=== PATIENT | female | born 1945 | race Caucasian/White ===

== ENCOUNTER 2018-08-23 13:09 | Inpatient (IN) | payer MEDICARE ==
[~2018-08-23] VITALS: Ht 167.6 cm; Wt 76.4 kg
[~2018-08-23 13:09] MED LIST: ATEN25TA PO; LORA-445 PO; OXYC10TA6 PO
[2018-08-23] MEDS ORDERED: DIPH,PERTUSS(ACELL),TET VAC/PF 0.5 ML IM-VACC ONE (14:00)
[2018-08-23] MEDS ORDERED: LIDOCAINE-MPF 1%, 5ML INFIL ONE (14:00)
[2018-08-23 14:31] LABS: RAPID INFLUENZA A Negative (Negative); RAPID INFLUENZA B Negative (Negative)
--- NOTE | 2018-08-23 14:37 | NUR ---
pt presents to ED with c/o cough and generalized weakness x 3 weeks. pt a&o, resps even and unlabored, neuro intact. pt has 4/5 strength to all extremities, gait steady. EKG taken and reviewed by EDMD and EDPA. all results back, chart up for recheck. awaiting further orders at this time.
[2018-08-23 15:09] LABS: BASOPHILS # (AUTO) 0.02 x10^3/uL (0-0.1); BASOPHILS % (AUTO) 0 % (0-1); EOSINOPHILS # (AUTO) 0.06 x10^3/uL (0-0.4); EOSINOPHILS % (AUTO) 1 % (1-7); LYMPHOCYTES # (AUTO) 1.53 x10^3/uL (1-3.4); LYMPHOCYTES % (AUTO) 22 % (22-44); MD NO; MEAN CORPUSCULAR HEMOGLOBIN 32.3 pg (27.0-34.8); MEAN CORPUSCULAR HGB CONC 33.3 g/dL (32.4-35.8); MEAN CORPUSCULAR VOLUME 97.2 fL (80-100); MEAN PLATELET VOLUME 7.3 fL (7.4-10.4); MONOCYTES # (AUTO) 0.62 x10^3/uL (0.2-0.8); MONOCYTES % (AUTO) 9 % (2-9); NEUTROPHILS # (AUTO) 4.66 x10^3/uL (1.8-6.8); NEUTROPHILS % (AUTO) 68 % (42-75); PLATELET COUNT 244 x10^3/uL (130-400); RED CELL DISTRIBUTION WIDTH 15.4 % (9.6-15.2)
--- NOTE | 2018-08-23 15:10 | NUR ---
labs ordered and pending at this time. pt to be admitted, pt updated with results and POC by EDPA. EDPA Long at bedside at this time. all monitors in place, pt is sinus david rate 50's on cardiac rehabilitation program director with no ectopy. call light in reach. Addendum: 08/23/18 at 1551 by GAVINO labs ordered and pending at this time. pt to be admitted, pt updated with results and POC by EDPA. EDPA Long at bedside at this time. all monitors in place, pt is sinus david rate 50's on cardiac rehabilitation program director with no ectopy. pt denies any chest pain/pressure. call light in reach.
[2018-08-23 15:14] LABS: ALBUMIN 3.6 g/dL (3.4-5.0); ANION GAP 8 mmol/L (5-15); CALCIUM 8.8 mg/dL (8.5-10.1); CHLORIDE 106 mmol/L (98-107)
[2018-08-23 15:19] LABS: ALANINE AMINOTRANSFERASE 29 U/L (12-78); ALKALINE PHOSPHATASE 61 U/L (45-117); BILIRUBIN,TOTAL 1.8 mg/dL (0.2-1.0); CREATININE 1.21 mg/dL (0.55-1.02); TOTAL PROTEIN 6.8 g/dL (6.4-8.2); TROPONIN I < 0.015 ng/mL (0.000-0.045)
--- NOTE | 2018-08-23 16:00 | NUR ---
pt to CT, pt a&o, resps even and unlabored, nadn at this time. son at bedside, son updated with POC with pts permission.
[2018-08-23] MEDS ORDERED: OMNIPAQUE 350 MG/ML, 100ML BOTTLE ONE (16:20)
[2018-08-23] MEDS ORDERED: AMIO100T4 PO (16:35)
[2018-08-23] MEDS ORDERED: MIRT15TA3 PO (16:35)
[2018-08-23] MEDS ORDERED: LISI-170 PO (16:35)
[2018-08-23] MEDS ORDERED: [UNRECOGNIZED DRUG - CODE] PO (16:35)
[2018-08-23] MEDS ORDERED: CARV6.252 PO (16:35)
[2018-08-23] MEDS ORDERED: TRAZ50TA66 PO (16:35)
[2018-08-23] MEDS ORDERED: CELE200C PO (16:35)
[2018-08-23] MEDS ORDERED: BACL-19 PO (16:35)
[2018-08-23] MEDS ORDERED: HYDR50TA13 PO (16:35)
--- NOTE | 2018-08-23 16:35 | NUR ---
PT UNABLE TO RECALL HOME MEDS, PT STATES PREFERRED PHARMACY IS [facility]. HOME MEDS VERIFIED BY CALLING PTS HOME PHARMACY, MED REC COMPLETE.
--- NOTE | 2018-08-23 16:41 | NUR ---
PT BACK FROM CT. PT A&O, RESPS EVEN AND UNLABORED. PT DENIES PAIN. SINUS TWYLA RATE 50'S ON BUSINESS MGR. CALL LIGHT IN REACH. PT AWAITING ADMIT ORDERS AND ROOM ASSIGNMENT. CONTACT AND DROPLET ISOLATION PRECAUTIONS IN PLACE D/T +RSV. PT AND FAMILY EDUCATED REGARDING ISOLATION PRECAUTIONS.
--- NOTE | 2018-08-23 17:04 | NUR ---
EDMD YON AT BEDSIDE TO UPDATE PT WITH RESULTS AND POC.
[2018-08-23] MEDS: SODIUM CHLORIDE 0.9% 1,000 ML IV SCH ×2 (17:33→20:30)
--- NOTE | 2018-08-23 17:34 | NUR ---
TERRA Ambrocio at bedside to admit pt. IVF initiated. Pt provided with juice and water with EDMDs ok.
[2018-08-23] MEDS ORDERED: NITROGLYCERIN 0.4 MG BOTTLE (25 TABS) SL PRN (18:00)
[2018-08-23] MEDS ORDERED: ONDANSETRON 2MG/ML, 2ML IVPush PRN (18:00)
[2018-08-23] MEDS ORDERED: POLYETHYLENE GLYCOL 17 GM PACKET PO PRN (18:00)
[2018-08-23] MEDS ORDERED: hydrALAzine 20 MG/ML, 1ML IVPush PRN (18:00)
[2018-08-23] MEDS ORDERED: BISACODYL 10 MG SUPP PR PRN (18:00)
[2018-08-23] MEDS ORDERED: ACETAMINOPHEN 325 MG TABLET PO PRN (18:00)
[2018-08-23] MEDS ORDERED: ONDANSETRON ODT 4 MG PO PRN (18:00)
[2018-08-23] MEDS ORDERED: DOCUSATE 100 MG CAPSULE PO PRN (18:00)
[2018-08-23] MEDS ORDERED: DIPHENHYDRAMINE 25 MG CAPSULE PO PRN (18:00)
[2018-08-23] MEDS ORDERED: ASPIRIN PO (18:05)
--- NOTE | 2018-08-23 18:05 | NUR ---
REPORT CALLED TO RECEIVING RN FAY. PT A&O, RESPS EVEN AND UNLABORED, SINUS TWYLA ON DOBIE WORKER WITH NO ECTOPY. PT AWAITING TRANSPORT TO ROOM 420 AT THIS TIME.
[2018-08-23 18:41] VITALS: BP 140/81
[2018-08-23 18:46] LABS: TROPONIN I < 0.015 ng/mL (0.000-0.045)
[2018-08-23] MEDS: CEFTRIAXONE PMX 1GM/50ML 50 ML IV SCH (20:30)
[2018-08-23] MEDS: NS + 20MEQ KCL 1,000 ML IV SCH (20:30)
[2018-08-23] MEDS: HEPARIN 5,000 UNITS/ML, 1ML SQ SCH (20:32)
[2018-08-23] MEDS: DOXYCYCLINE 100MG TABLET PO SCH (20:32)
[2018-08-23 21:17] LABS: TROPONIN I < 0.015 ng/mL (0.000-0.045)
[2018-08-23] MEDS: GUAIFENESIN/DM 200-20MG, 10ML UDC PO SCH (21:19)
[2018-08-23] MEDS ORDERED: ZOLPIDEM 5MG TABLET ONE (21:27)
[2018-08-23] MEDS ORDERED: ZOLPIDEM 5MG TABLET PO ONE (21:30)
[2018-08-23 22:36] VITALS: BP 103/65
[2018-08-23 22:46] LABS: MICROSCOPIC NOT IND
[2018-08-23 22:49] LABS: CULTURE INDICATED? NO
[2018-08-23 23:00] VITALS: BP 119/62
[2018-08-24 01:07] VITALS: BP 126/71
[2018-08-24] MEDS: HEPARIN 5,000 UNITS/ML, 1ML SQ SCH ×3 (02:40→17:54)
[2018-08-24 04:39] LABS: ALANINE AMINOTRANSFERASE 24 U/L (12-78); ALBUMIN 3.2 g/dL (3.4-5.0); ANION GAP 3 mmol/L (5-15); CALCIUM 7.9 mg/dL (8.5-10.1); CHLORIDE 108 mmol/L (98-107); CREATININE 0.93 mg/dL (0.55-1.02)
[2018-08-24 04:42] LABS: ALKALINE PHOSPHATASE 59 U/L (45-117); BILIRUBIN,TOTAL 1.2 mg/dL (0.2-1.0); TOTAL PROTEIN 6.2 g/dL (6.4-8.2)
[2018-08-24 04:59] LABS: BASOPHILS # (AUTO) 0.02 x10^3/uL (0-0.1); BASOPHILS % (AUTO) 0 % (0-1); EOSINOPHILS % (AUTO) 2 % (1-7); LYMPHOCYTES % (AUTO) 33 % (22-44); MD NO; MEAN CORPUSCULAR HEMOGLOBIN 33.4 pg (27.0-34.8); MEAN CORPUSCULAR HGB CONC 34.2 g/dL (32.4-35.8); MEAN CORPUSCULAR VOLUME 97.5 fL (80-100); MEAN PLATELET VOLUME 7.7 fL (7.4-10.4); MONOCYTES % (AUTO) 13 % (2-9); NEUTROPHILS # (AUTO) 3.42 x10^3/uL (1.8-6.8); NEUTROPHILS % (AUTO) 53 % (42-75); PLATELET COUNT 191 x10^3/uL (130-400); RED BLOOD COUNT 4.02 x10^6/uL (3.82-5.3); RED CELL DISTRIBUTION WIDTH 15.6 % (9.6-15.2)
[2018-08-24] MEDS: GUAIFENESIN/DM 200-20MG, 10ML UDC PO SCH ×3 (05:51→09:14)
[2018-08-24] MEDS: NS + 20MEQ KCL 1,000 ML IV SCH ×3 (06:08→20:42)
[2018-08-24 08:20] VITALS: BP 140/97
[2018-08-24] MEDS: DOXYCYCLINE 100MG TABLET PO SCH ×2 (09:14→20:42)
[2018-08-24] MEDS: GUAIFENESIN ER 600 MG TABLET PO SCH ×2 (11:47→20:44)
[2018-08-24] MEDS: BENZONATATE 100 MG CAPSULE PO SCH ×3 (11:47→20:44)
[2018-08-24 13:19] VITALS: BP 149/89
[2018-08-24] MEDS ORDERED: VANCOMYCIN PER PHARMACY MC PRN (13:30)
[2018-08-24] MEDS ORDERED: PHARMACOKINETIC CONSULTATION MC ONE (14:00)
[2018-08-24] MEDS ORDERED: hydrOXyzine 50MG TABLET PO PRN (14:00)
[2018-08-24] MEDS ORDERED: PHARMACOKINETIC MONITORING MC PRN (14:00)
[2018-08-24] MEDS: BACLOFEN 10 MG TABLET PO SCH ×2 (15:16→20:43)
[2018-08-24] MEDS: VANCOMYCIN 1,500 MG in SODIUM CHLORIDE 0.9% 250 ML IV SCH (17:30)
[2018-08-24 18:44] VITALS: BP 140/97
[2018-08-24] MEDS: CEFTRIAXONE PMX 1GM/50ML 50 ML IV SCH (20:42)
[2018-08-24] MEDS: CARVEDILOL 6.25 MG TABLET PO SCH (20:43)
[2018-08-24] MEDS: MIRTAZAPINE 15 MG TAB.RAPDIS PO SCH (20:45)
[2018-08-24] MEDS: TRAZODONE 50MG TABLET PO SCH (20:45)
[2018-08-24] MEDS: ZOLPIDEM 5MG TABLET PO PRN (21:30)
[2018-08-25 01:03] VITALS: BP 151/96
[2018-08-25] MEDS: HEPARIN 5,000 UNITS/ML, 1ML SQ SCH ×3 (02:41→17:06)
[2018-08-25] MEDS: NS + 20MEQ KCL 1,000 ML IV SCH ×2 (05:49→17:00)
[2018-08-25 08:10] VITALS: BP 156/99
[2018-08-25] MEDS: BENZONATATE 100 MG CAPSULE PO SCH ×3 (09:51→21:12)
[2018-08-25] MEDS: AMIODARONE 200 MG TABLET PO SCH (09:52)
[2018-08-25] MEDS: GUAIFENESIN ER 600 MG TABLET PO SCH ×2 (09:52→21:12)
[2018-08-25] MEDS: CARVEDILOL 6.25 MG TABLET PO SCH ×2 (09:52→21:13)
[2018-08-25] MEDS: DOXYCYCLINE 100MG TABLET PO SCH ×2 (09:52→21:12)
[2018-08-25] MEDS: PAROXETINE HCL 37.5 MG PO SCH (09:52)
[2018-08-25] MEDS: LISINOPRIL 20 MG TABLET PO SCH (09:52)
[2018-08-25] MEDS: ASPIRIN 81 MG TABLET CHEW PO SCH (09:52)
[2018-08-25] MEDS: BACLOFEN 10 MG TABLET PO SCH ×3 (09:52→21:12)
[2018-08-25 12:37] VITALS: BP 143/75
[2018-08-25] MEDS: VANCOMYCIN 1,500 MG in SODIUM CHLORIDE 0.9% 250 ML IV SCH (17:00)
[2018-08-25 19:18] VITALS: BP 140/99
[2018-08-25] MEDS: MIRTAZAPINE 15 MG TAB.RAPDIS PO SCH (21:12)
[2018-08-25] MEDS: TRAZODONE 50MG TABLET PO SCH (21:12)
[2018-08-25] MEDS: CEFTRIAXONE PMX 1GM/50ML 50 ML IV SCH (21:12)
[2018-08-25] MEDS: ZOLPIDEM 5MG TABLET PO PRN (21:12)
[2018-08-26] MEDS: HEPARIN 5,000 UNITS/ML, 1ML SQ SCH ×2 (00:12→10:15)
[2018-08-26] MEDS: NS + 20MEQ KCL 1,000 ML IV SCH ×2 (01:37→08:22)
[2018-08-26 02:00] VITALS: BP 150/96
[2018-08-26 07:51] VITALS: BP 153/111
[2018-08-26 08:15] VITALS: BP 154/101
[2018-08-26] MEDS: GUAIFENESIN ER 600 MG TABLET PO SCH (08:18)
[2018-08-26] MEDS: BENZONATATE 100 MG CAPSULE PO SCH ×2 (08:18→16:27)
[2018-08-26] MEDS: CARVEDILOL 6.25 MG TABLET PO SCH (08:18)
[2018-08-26] MEDS: BACLOFEN 10 MG TABLET PO SCH ×2 (08:18→16:27)
[2018-08-26] MEDS: LISINOPRIL 20 MG TABLET PO SCH (08:19)
[2018-08-26] MEDS: DOXYCYCLINE 100MG TABLET PO SCH (08:19)
[2018-08-26] MEDS: ASPIRIN 81 MG TABLET CHEW PO SCH (08:19)
[2018-08-26] MEDS: AMIODARONE 200 MG TABLET PO SCH (08:19)
[2018-08-26] MEDS: PAROXETINE HCL 37.5 MG PO SCH (08:22)
[2018-08-26] MEDS ORDERED: DOXY100T PO (10:21)
[2018-08-26] MEDS ORDERED: BENZ-17 PO (10:21)
[2018-08-26] MEDS ORDERED: GUAI600T31 PO (10:21)
[2018-08-26] MEDS ORDERED: CEFD300C37 PO (10:21)
[2018-08-26 13:45] VITALS: BP 128/92
== END 2018-08-26 17:00 | disposition home or self-care (01) | DRG 682 ==
LOC: ED 14:55 → EDIP 17:10 → 4WST 18:25
PROVIDERS: ADMIT Internal Medicine; ATTEND Internal Medicine
DX: N17.0 Acute kidney failure with tubular necrosis (principal); J18.9 Pneumonia, unspecified organism; R17 Unspecified jaundice; B97.4 Respiratory syncytial virus as the cause of diseases classified elsewhere; R25.1 Tremor, unspecified; E86.0 Dehydration; F32.9 Major depressive disorder, single episode, unspecified; I10 Essential (primary) hypertension; I48.91 Unspecified atrial fibrillation; F17.210 Nicotine dependence, cigarettes, uncomplicated; R79.1 Abnormal coagulation profile; Z80.1 Family history of malignant neoplasm of trachea, bronchus and lung; Z82.49 Family history of ischemic heart disease and other diseases of the circulatory system; Z90.49 Acquired absence of other specified parts of digestive tract
CPT/HCPCS: 36415; 71046; 71275; 80053; 81003; 83735; 83880; 84100; 84145; 84484; 85025; 85379; 86756; 87040; 87400; 93005; 99285; G0378; J0696; J1644; J3370; J3480; Q9967; J7030; J7050

== ENCOUNTER 2018-12-22 14:07 | Inpatient (IN) | payer MEDICARE ==
[~2018-12-22] VITALS: Ht 167.6 cm; Wt 98.0 kg
[~2018-12-22 14:07] MED LIST changes: +AMIO100T4 PO; +ASPIRIN PO; +BACL-19 PO; +BENZ-17 PO; +CARV6.252 PO; +CEFD300C37 PO; +CELE200C PO; +DOXY100T PO; +GUAI600T31 PO; +HYDR50TA13 PO; +LISI-170 PO; +MIRT15TA3 PO; +TRAZ50TA66 PO; +[UNRECOGNIZED DRUG - CODE] PO
--- NOTE | 2018-12-22 14:10 | NUR ---
PT BIB [facility] FROM HOME FOR N/V/D FOR 2 DAYS WITH NEAR SYNCOPE THIS AM. CALLED [facility] AFTER PT FELT LIKE SHE WAS GOING TO HAVE A "WHITE OUT." PT DID NOT HAVE LOC. PT WAS IN A-FIB RVR ON ARRIVAL TO ER. FLUIDS GIVEN BY [facility]. BS WAS 117. PT ON MONITOR. WAITING FOR ORDERS. PT DENIES CP OR SOB.
[2018-12-22] MEDS ORDERED: SODIUM CHLORIDE 0.9% 1,000 ML IV ONE (14:13)
[2018-12-22] MEDS ORDERED: DILTIAZEM 125 MG in SODIUM CHLORIDE 0.9% 100 ML IV SCH (14:16)
[2018-12-22] MEDS ORDERED: DILTIAZEM 5 MG/ML, 5ML ONE (14:23)
[2018-12-22] MEDS ORDERED: ONDANSETRON 2MG/ML, 2ML ONE ×2 (14:23→15:48)
[2018-12-22] MEDS ORDERED: ONDANSETRON 2MG/ML, 2ML IVPush ONE ×2 (14:30→16:00)
[2018-12-22] MEDS ORDERED: DILTIAZEM 5 MG/ML, 5ML IV ONE (14:30)
[2018-12-22] MEDS ORDERED: PLEASE ENTER HEIGHT AND WEIGHT MC SCH (14:30)
[2018-12-22] MEDS ORDERED: SODIUM CHLORIDE 0.9% 1,000ML IVBOLUS ONE (14:30)
[2018-12-22] MEDS ORDERED: SODIUM CHLORIDE FLUSH 10ML SYR IVF ONE (14:30)
[2018-12-22 14:51] LABS: ALANINE AMINOTRANSFERASE 66 U/L (12-78); ALBUMIN 3.4 g/dL (3.4-5.0); ANION GAP 13 mmol/L (5-15); CALCIUM 7.7 mg/dL (8.5-10.1); CHLORIDE 109 mmol/L (98-107); CREATININE 0.89 mg/dL (0.55-1.02)
[2018-12-22 14:55] LABS: ALKALINE PHOSPHATASE 74 U/L (45-117); BILIRUBIN,TOTAL 1.5 mg/dL (0.2-1.0); TOTAL PROTEIN 6.4 g/dL (6.4-8.2); TROPONIN I < 0.015 ng/mL (0.000-0.045)
--- NOTE | 2018-12-22 14:55 | NUR ---
PT MEDICATED ORDERED. VSS. HR 90'S-110'S. WAITING FOR RESULTS.
[2018-12-22 14:58] LABS: BASOPHILS # (AUTO) 0.01 x10^3/uL (0-0.1); BASOPHILS % (AUTO) 0 % (0-1); EOSINOPHILS # (AUTO) 0.03 x10^3/uL (0-0.4); EOSINOPHILS % (AUTO) 1 % (1-7); LYMPHOCYTES # (AUTO) 0.85 x10^3/uL (1-3.4); LYMPHOCYTES % (AUTO) 14 % (22-44); MD NO; MEAN CORPUSCULAR HEMOGLOBIN 34.8 pg (27.0-34.8); MEAN CORPUSCULAR VOLUME 105.4 fL (80-100); MEAN PLATELET VOLUME 7.6 fL (7.4-10.4); MONOCYTES # (AUTO) 0.36 x10^3/uL (0.2-0.8); MONOCYTES % (AUTO) 6 % (2-9); NEUTROPHILS # (AUTO) 4.65 x10^3/uL (1.8-6.8); NEUTROPHILS % (AUTO) 79 % (42-75); PLATELET COUNT 110 x10^3/uL (130-400); RED CELL DISTRIBUTION WIDTH 14.9 % (9.6-15.2)
[2018-12-22 15:03] LABS: INTERNATIONAL NORMALIZED RATIO 1.01 (0.93-1.1); PROTHROMBIN TIME 10.6 Seconds (9.6-11.5)
[2018-12-22] MEDS ORDERED: LEVOTHYROXINE PO (15:11)
--- NOTE | 2018-12-22 15:41 | NUR ---
PT IN RAD FOR HIP XRAY. PT ATTEMPTED TO VOID BUT NOT ABLE TO VOID.
--- NOTE | 2018-12-22 15:56 | NUR ---
PT BACK FROM RAD. HR IN THE 70'S AND REGULAR. PT REPORTED N/V OVER IN RAD. ZOFRAN REPEATED PER DR. FRITZ. EKG REPEATED.
[2018-12-22] MEDS: SODIUM CHLORIDE 0.9% 1,000 ML IV SCH ×3 (16:00→18:13)
[2018-12-22] MEDS ORDERED: ONDANSETRON 2MG/ML, 2ML IVPush PRN (16:30)
[2018-12-22] MEDS ORDERED: LABETALOL 5MG/ML, 20ML IVPush PRN (16:30)
[2018-12-22] MEDS ORDERED: hydrOXyzine 50MG TABLET PO PRN (16:30)
[2018-12-22] MEDS ORDERED: PROMETHAZINE 25 MG/ML, 1ML IM PRN (16:30)
[2018-12-22] MEDS ORDERED: SODIUM CHLORIDE FLUSH 10ML SYR IVF PRN (16:30)
[2018-12-22] MEDS ORDERED: hydrALAzine 20 MG/ML, 1ML IVPush PRN (16:30)
[2018-12-22] MEDS ORDERED: ONDANSETRON ODT 4 MG PO PRN (16:30)
--- NOTE | 2018-12-22 16:57 | NUR ---
BREAK RN: PT GIVEN WARM BLANKET, REPORTS NO OTHER NEEDS AT THIS TIME. PT IN BED, NAD, FAMILY MEMBER AT BEDSIDE, AWAITING ADMIT BED.
[2018-12-22] MEDS ORDERED: LORazepam 2 MG/ML, 1ML IVPush PRN (17:00)
[2018-12-22 17:46] VITALS: BP 127/83
[2018-12-22] MEDS ORDERED: DILTIAZEM 125 MG in SODIUM CHLORIDE 0.9% 100 ML IV PRN (18:00)
[2018-12-22] MEDS: ENOXAPARIN 40 MG/0.4 ML SQ SCH (18:01)
[2018-12-22] MEDS: CALCIUM CARBONATE 500 MG TAB.CHEW PO SCH ×2 (18:01→20:49)
[2018-12-22 19:08] LABS: TROPONIN I < 0.015 ng/mL (0.000-0.045)
[2018-12-22 19:10] VITALS: BP 138/88
[2018-12-22] MEDS: CARVEDILOL 6.25 MG TABLET PO SCH (20:48)
[2018-12-22] MEDS: MIRTAZAPINE 15 MG TAB.RAPDIS PO SCH (20:49)
[2018-12-22] MEDS: TRAZODONE 50MG TABLET PO SCH (20:49)
[2018-12-22] MEDS: THIAMINE 100MG TABLET PO SCH (20:49)
[2018-12-22] MEDS: LORazepam 2 MG/ML, 1ML IVPush PRN (20:50)
[2018-12-22 21:26] LABS: CLOSTRIDIUM DIFFICILE ANTIGEN NEGATIVE; CLOSTRIDIUM DIFFICILE TOXIN NEGATIVE (Negative)
[2018-12-23 00:08] LABS: TROPONIN I < 0.015 ng/mL (0.000-0.045)
[2018-12-23 00:42] VITALS: BP 126/86
[2018-12-23] MEDS: LORazepam 2 MG/ML, 1ML IVPush PRN (00:54)
[2018-12-23] MEDS: SODIUM CHLORIDE 0.9% 1,000 ML IV SCH ×2 (00:59→09:41)
[2018-12-23] MEDS: CALCIUM CARBONATE 500 MG TAB.CHEW PO SCH ×4 (05:48→21:27)
[2018-12-23 05:54] LABS: ALANINE AMINOTRANSFERASE 51 U/L (12-78); ALBUMIN 2.8 g/dL (3.4-5.0); ANION GAP 7 mmol/L (5-15); CALCIUM 6.7 mg/dL (8.5-10.1); CHLORIDE 113 mmol/L (98-107); CREATININE 0.71 mg/dL (0.55-1.02)
[2018-12-23 05:56] LABS: ALKALINE PHOSPHATASE 54 U/L (45-117); BILIRUBIN,TOTAL 2.2 mg/dL (0.2-1.0); TOTAL PROTEIN 5.2 g/dL (6.4-8.2)
[2018-12-23 06:13] LABS: MEAN CORPUSCULAR HEMOGLOBIN 35.1 pg (27.0-34.8); MEAN CORPUSCULAR HGB CONC 33.4 g/dL (32.4-35.8); MEAN CORPUSCULAR VOLUME 104.9 fL (80-100); RED BLOOD COUNT 3.19 x10^6/uL (3.82-5.3); RED CELL DISTRIBUTION WIDTH 14.9 % (9.6-15.2)
[2018-12-23 06:16] LABS: BASOPHILS # (AUTO) 0.01 x10^3/uL (0-0.1); BASOPHILS % (AUTO) 0 % (0-1); EOSINOPHILS % (AUTO) 3 % (1-7); LYMPHOCYTES # (AUTO) 1.14 x10^3/uL (1-3.4); LYMPHOCYTES % (AUTO) 29 % (22-44); MD NO; MEAN PLATELET VOLUME 6.9 fL (7.4-10.4); MONOCYTES # (AUTO) 0.27 x10^3/uL (0.2-0.8); MONOCYTES % (AUTO) 7 % (2-9); NEUTROPHILS # (AUTO) 2.38 x10^3/uL (1.8-6.8); NEUTROPHILS % (AUTO) 61 % (42-75); PLATELET COUNT 77 x10^3/uL (130-400)
[2018-12-23] MEDS ORDERED: PANTOPRAZOLE 40 MG IV IVPush SCH (07:30)
[2018-12-23] MEDS ORDERED: CALCIUM GLUCONATE 13.8 MEQ in SODIUM CHLORIDE 0.9% 100 ML IV ONE (08:00)
[2018-12-23] MEDS ORDERED: LORazepam 2 MG/ML, 1ML IV PRN ×4 (08:00)
[2018-12-23] MEDS ORDERED: LORazepam 1MG TABLET PO PRN (08:00)
[2018-12-23] MEDS ORDERED: PAROXETINE HCL HOMEMEDPO SCH (09:00)
[2018-12-23] MEDS ORDERED: LISINOPRIL 20 MG TABLET PO SCH (09:00)
[2018-12-23 09:33] VITALS: BP 139/97
[2018-12-23] MEDS: ASPIRIN 81 MG TABLET EC PO SCH (09:41)
[2018-12-23] MEDS: CHLORDIAZEPOXIDE 25 MG CAPSULE PO SCH ×3 (09:41→21:26)
[2018-12-23] MEDS: FOLIC ACID 1 MG TABLET PO SCH (09:41)
[2018-12-23] MEDS: PANTOPRAZOLE 20MG TABLET PO SCH ×2 (09:41→16:11)
[2018-12-23] MEDS: CARVEDILOL 6.25 MG TABLET PO SCH ×2 (09:41→21:26)
[2018-12-23] MEDS: THIAMINE 100MG TABLET PO SCH ×2 (09:41→21:26)
[2018-12-23] MEDS: LORazepam 0.5MG TABLET PO PRN (12:32)
[2018-12-23 13:02] VITALS: BP 138/92
[2018-12-23 14:48] LABS: MICROSCOPIC INDICATED
[2018-12-23] MEDS ORDERED: SODIUM CHLORIDE 0.9% 1,000 ML IV SCH (16:30)
[2018-12-23] MEDS: ENOXAPARIN 40 MG/0.4 ML SQ SCH (17:26)
[2018-12-23] MEDS ORDERED: CEFTRIAXONE PMX 1GM/50ML 50 ML IV SCH (18:00)
[2018-12-23 19:33] VITALS: BP 135/88
[2018-12-23] MEDS: MIRTAZAPINE 15 MG TAB.RAPDIS PO SCH (21:27)
[2018-12-23] MEDS: TRAZODONE 50MG TABLET PO SCH (21:28)
[2018-12-23] MEDS: LORazepam 1MG TABLET PO PRN ×2 (21:41→23:10)
[2018-12-24] VITALS (8 sets, daily range): BP systolic 92–158; BP diastolic 64–102
[2018-12-24] MEDS: LORazepam 1MG TABLET PO PRN (03:53)
[2018-12-24] MEDS: CALCIUM CARBONATE 500 MG TAB.CHEW PO SCH ×4 (05:24→20:31)
[2018-12-24] MEDS: PANTOPRAZOLE 20MG TABLET PO SCH ×2 (05:24→16:18)
[2018-12-24 05:27] LABS: ALANINE AMINOTRANSFERASE 41 U/L (12-78); ANION GAP 7 mmol/L (5-15); CALCIUM 8.1 mg/dL (8.5-10.1); CHLORIDE 113 mmol/L (98-107)
[2018-12-24 05:30] LABS: ALKALINE PHOSPHATASE 63 U/L (45-117); BILIRUBIN,TOTAL 1.4 mg/dL (0.2-1.0); CREATININE 0.65 mg/dL (0.55-1.02); TOTAL PROTEIN 5.8 g/dL (6.4-8.2)
[2018-12-24] MEDS: THIAMINE 100MG TABLET PO SCH ×2 (07:39→20:31)
[2018-12-24] MEDS: CARVEDILOL 6.25 MG TABLET PO SCH ×3 (07:39→20:30)
[2018-12-24] MEDS: ASPIRIN 81 MG TABLET EC PO SCH (07:39)
[2018-12-24] MEDS: CHLORDIAZEPOXIDE 25 MG CAPSULE PO SCH ×3 (07:39→23:52)
[2018-12-24] MEDS: FOLIC ACID 1 MG TABLET PO SCH (07:39)
[2018-12-24] MEDS: PAROXETINE HCL HOMEMEDPO SCH (07:40)
[2018-12-24] MEDS: CEFDINIR 300 MG CAPSULE PO SCH ×2 (07:51→20:31)
[2018-12-24] MEDS: NEUTRA PHOS K 250 MG TABLET PO SCH ×2 (07:51→20:31)
[2018-12-24] MEDS: LORazepam 0.5MG TABLET PO PRN ×2 (13:30→20:33)
[2018-12-24] MEDS: THIAMINE 100 MG in SODIUM CHLORIDE 0.9% 50 ML IV SCH (16:18)
[2018-12-24] MEDS: ENOXAPARIN 40 MG/0.4 ML SQ SCH (17:46)
[2018-12-24] MEDS: TRAZODONE 50MG TABLET PO SCH (20:30)
[2018-12-24] MEDS: MIRTAZAPINE 15 MG TAB.RAPDIS PO SCH (20:31)
[2018-12-25 01:08] VITALS: BP 150/80
[2018-12-25 03:55] VITALS: BP 135/95
[2018-12-25] MEDS: LORazepam 1MG TABLET PO PRN (04:10)
[2018-12-25 06:08] LABS: ALBUMIN 2.9 g/dL (3.4-5.0); ANION GAP 4 mmol/L (5-15); CALCIUM 8.2 mg/dL (8.5-10.1); CHLORIDE 111 mmol/L (98-107)
[2018-12-25 06:12] LABS: ALANINE AMINOTRANSFERASE 37 U/L (12-78); ALKALINE PHOSPHATASE 59 U/L (45-117); BILIRUBIN,TOTAL 1.1 mg/dL (0.2-1.0); CREATININE 0.72 mg/dL (0.55-1.02); TOTAL PROTEIN 5.8 g/dL (6.4-8.2)
[2018-12-25] MEDS: CALCIUM CARBONATE 500 MG TAB.CHEW PO SCH ×4 (06:36→20:08)
[2018-12-25 07:35] VITALS: BP 153/98
[2018-12-25] MEDS ORDERED: MAGNESIUM SULFATE PMX 2GM/50ML 50 ML IV ONE (08:00)
[2018-12-25] MEDS: NEUTRA PHOS K 250 MG TABLET PO SCH ×2 (08:59→20:07)
[2018-12-25] MEDS: CEFDINIR 300 MG CAPSULE PO SCH ×2 (08:59→20:07)
[2018-12-25] MEDS: CHLORDIAZEPOXIDE 25 MG CAPSULE PO SCH (09:00)
[2018-12-25] MEDS: PANTOPRAZOLE 20MG TABLET PO SCH ×2 (09:00→16:25)
[2018-12-25] MEDS: THIAMINE 100MG TABLET PO SCH ×2 (09:00→20:06)
[2018-12-25] MEDS: ASPIRIN 81 MG TABLET EC PO SCH (09:00)
[2018-12-25] MEDS: FOLIC ACID 1 MG TABLET PO SCH (09:00)
[2018-12-25] MEDS: CARVEDILOL 25 MG TABLET PO SCH ×2 (09:00→20:07)
[2018-12-25] MEDS: PAROXETINE HCL HOMEMEDPO SCH (11:05)
[2018-12-25] MEDS ORDERED: LEVO75TA PO (13:08)
[2018-12-25] MEDS ORDERED: ASPI81TA45 PO (13:09)
[2018-12-25] MEDS ORDERED: QUET50TA PO (13:10)
[2018-12-25 14:33] VITALS: BP 124/88
[2018-12-25] MEDS: THIAMINE 100 MG in SODIUM CHLORIDE 0.9% 50 ML IV SCH (16:25)
[2018-12-25 19:37] VITALS: BP 144/86
[2018-12-25] MEDS: APIXABAN 5 MG TABLET PO SCH (20:07)
[2018-12-25] MEDS ORDERED: CYCLOBENZAPRINE 10 MG TABLET PO ONE (21:30)
[2018-12-25] MEDS: CHLORDIAZEPOXIDE 25 MG CAPSULE PO PRN (23:51)
[2018-12-26 01:40] VITALS: BP 145/90
[2018-12-26 06:22] LABS: ANION GAP 7 mmol/L (5-15); CALCIUM 8.6 mg/dL (8.5-10.1); CHLORIDE 109 mmol/L (98-107)
[2018-12-26 06:27] LABS: ALANINE AMINOTRANSFERASE 34 U/L (12-78); ALKALINE PHOSPHATASE 55 U/L (45-117); BILIRUBIN,TOTAL 1.4 mg/dL (0.2-1.0); CREATININE 0.68 mg/dL (0.55-1.02); TOTAL PROTEIN 5.9 g/dL (6.4-8.2)
[2018-12-26] MEDS ORDERED: CYCLOBENZAPRINE 10 MG TABLET PO PRN (08:00)
[2018-12-26 08:08] VITALS: BP 147/96
[2018-12-26] MEDS: LORazepam 0.5MG TABLET PO PRN (08:52)
[2018-12-26] MEDS: LEVOTHYROXINE 75 MCG TABLET PO SCH (08:52)
[2018-12-26] MEDS: CARVEDILOL 25 MG TABLET PO SCH ×2 (08:52→20:25)
[2018-12-26] MEDS: CEFDINIR 300 MG CAPSULE PO SCH ×2 (08:53→20:25)
[2018-12-26] MEDS: FOLIC ACID 1 MG TABLET PO SCH (08:53)
[2018-12-26] MEDS: PANTOPRAZOLE 20MG TABLET PO SCH ×2 (08:53→17:14)
[2018-12-26] MEDS: THIAMINE 100MG TABLET PO SCH ×2 (08:53→20:25)
[2018-12-26] MEDS: APIXABAN 5 MG TABLET PO SCH ×2 (08:53→20:24)
[2018-12-26] MEDS: NEUTRA PHOS K 250 MG TABLET PO SCH ×2 (08:53→20:25)
[2018-12-26] MEDS: PAROXETINE HCL HOMEMEDPO SCH (08:54)
[2018-12-26] MEDS ORDERED: MAGNESIUM HYDROXIDE 8%, 30ML UDC PO PRN (09:30)
[2018-12-26] MEDS: DOCUSATE 100 MG CAPSULE PO SCH ×2 (12:12→20:24)
[2018-12-26 13:42] VITALS: BP 103/70
[2018-12-26 19:55] VITALS: BP 110/74
[2018-12-27] MEDS: CHLORDIAZEPOXIDE 25 MG CAPSULE PO PRN ×2 (00:57→22:04)
[2018-12-27 01:26] VITALS: BP 150/90
[2018-12-27] MEDS: PANTOPRAZOLE 20MG TABLET PO SCH ×2 (05:57→17:22)
[2018-12-27] MEDS: LEVOTHYROXINE 75 MCG TABLET PO SCH (05:57)
[2018-12-27] MEDS: DOCUSATE 100 MG CAPSULE PO SCH ×2 (09:00→20:56)
[2018-12-27] MEDS: CEFDINIR 300 MG CAPSULE PO SCH ×2 (09:09→20:56)
[2018-12-27] MEDS: NEUTRA PHOS K 250 MG TABLET PO SCH ×2 (09:09→20:56)
[2018-12-27] MEDS: APIXABAN 5 MG TABLET PO SCH ×2 (09:09→20:56)
[2018-12-27] MEDS: CARVEDILOL 25 MG TABLET PO SCH ×2 (09:09→20:56)
[2018-12-27] MEDS: FOLIC ACID 1 MG TABLET PO SCH (09:09)
[2018-12-27] MEDS: THIAMINE 100MG TABLET PO SCH ×2 (09:09→20:56)
[2018-12-27] MEDS: PAROXETINE HCL HOMEMEDPO SCH (09:10)
[2018-12-27 09:51] VITALS: BP 117/80
[2018-12-27 15:55] VITALS: BP 151/97
[2018-12-27 19:42] VITALS: BP 132/83
[2018-12-27] MEDS: ACETAMINOPHEN 325 MG TABLET PO PRN (23:06)
[2018-12-28 02:24] VITALS: BP 141/90
[2018-12-28] MEDS: ACETAMINOPHEN 325 MG TABLET PO PRN ×3 (03:39→20:46)
[2018-12-28] MEDS: LEVOTHYROXINE 75 MCG TABLET PO SCH (06:00)
[2018-12-28] MEDS: PANTOPRAZOLE 20MG TABLET PO SCH ×2 (06:04→16:00)
[2018-12-28 07:10] VITALS: BP 153/94
[2018-12-28] MEDS: THIAMINE 100MG TABLET PO SCH ×2 (08:35→20:47)
[2018-12-28] MEDS: FOLIC ACID 1 MG TABLET PO SCH (08:35)
[2018-12-28] MEDS: APIXABAN 5 MG TABLET PO SCH ×2 (08:35→20:47)
[2018-12-28] MEDS: NEUTRA PHOS K 250 MG TABLET PO SCH ×2 (08:36→20:46)
[2018-12-28] MEDS: CARVEDILOL 25 MG TABLET PO SCH ×2 (08:36→20:47)
[2018-12-28] MEDS: CEFDINIR 300 MG CAPSULE PO SCH ×2 (08:36→20:46)
[2018-12-28] MEDS: DOCUSATE 100 MG CAPSULE PO SCH ×2 (08:42→20:47)
[2018-12-28] MEDS: PAROXETINE HCL HOMEMEDPO SCH (09:00)
[2018-12-28 15:45] VITALS: BP 125/92
[2018-12-28 19:37] VITALS: BP 143/93
[2018-12-29 01:17] VITALS: BP 145/97
[2018-12-29 05:32] LABS: BASOPHILS # (AUTO) 0.02 x10^3/uL (0-0.1); BASOPHILS % (AUTO) 1 % (0-1); EOSINOPHILS # (AUTO) 0.12 x10^3/uL (0-0.4); EOSINOPHILS % (AUTO) 3 % (1-7); LYMPHOCYTES # (AUTO) 1.41 x10^3/uL (1-3.4); LYMPHOCYTES % (AUTO) 34 % (22-44); MD NO; MEAN CORPUSCULAR HEMOGLOBIN 34.6 pg (27.0-34.8); MEAN CORPUSCULAR HGB CONC 33.1 g/dL (32.4-35.8); MEAN CORPUSCULAR VOLUME 104.4 fL (80-100); MONOCYTES # (AUTO) 0.62 x10^3/uL (0.2-0.8); MONOCYTES % (AUTO) 15 % (2-9); NEUTROPHILS # (AUTO) 1.97 x10^3/uL (1.8-6.8); NEUTROPHILS % (AUTO) 48 % (42-75); PLATELET COUNT 175 x10^3/uL (130-400); RED BLOOD COUNT 3.53 x10^6/uL (3.82-5.3); RED CELL DISTRIBUTION WIDTH 14.2 % (9.6-15.2)
[2018-12-29] MEDS: PANTOPRAZOLE 20MG TABLET PO SCH ×2 (05:32→16:25)
[2018-12-29] MEDS: LEVOTHYROXINE 75 MCG TABLET PO SCH (05:32)
[2018-12-29 05:36] LABS: ALBUMIN 3.2 g/dL (3.4-5.0); ANION GAP 7 mmol/L (5-15); CALCIUM 8.6 mg/dL (8.5-10.1); CHLORIDE 108 mmol/L (98-107)
[2018-12-29 05:39] LABS: ALANINE AMINOTRANSFERASE 30 U/L (12-78); ALKALINE PHOSPHATASE 59 U/L (45-117); CREATININE 0.92 mg/dL (0.55-1.02); TOTAL PROTEIN 6.2 g/dL (6.4-8.2)
[2018-12-29 07:05] VITALS: BP 145/91
[2018-12-29] MEDS: THIAMINE 100MG TABLET PO SCH ×2 (08:55→20:37)
[2018-12-29] MEDS: NEUTRA PHOS K 250 MG TABLET PO SCH (08:55)
[2018-12-29] MEDS: CEFDINIR 300 MG CAPSULE PO SCH (08:55)
[2018-12-29] MEDS: CARVEDILOL 25 MG TABLET PO SCH ×2 (08:55→20:38)
[2018-12-29] MEDS: DOCUSATE 100 MG CAPSULE PO SCH ×2 (08:56→20:38)
[2018-12-29] MEDS: FOLIC ACID 1 MG TABLET PO SCH (08:56)
[2018-12-29] MEDS: APIXABAN 5 MG TABLET PO SCH ×2 (08:56→20:38)
[2018-12-29] MEDS: PAROXETINE HCL HOMEMEDPO SCH (08:59)
[2018-12-29 14:00] VITALS: BP 126/80
[2018-12-29] MEDS: ACETAMINOPHEN 325 MG TABLET PO PRN (20:37)
[2018-12-29 20:49] VITALS: BP 144/99
[2018-12-30 00:56] VITALS: BP 151/99
[2018-12-30] MEDS: LEVOTHYROXINE 75 MCG TABLET PO SCH (05:38)
[2018-12-30] MEDS: PANTOPRAZOLE 20MG TABLET PO SCH ×2 (05:38→18:13)
[2018-12-30 07:28] VITALS: BP 133/89
[2018-12-30] MEDS: PAROXETINE HCL HOMEMEDPO SCH (09:00)
[2018-12-30] MEDS: DOCUSATE 100 MG CAPSULE PO SCH (09:00)
[2018-12-30] MEDS: CARVEDILOL 25 MG TABLET PO SCH ×2 (10:02→20:23)
[2018-12-30] MEDS: APIXABAN 5 MG TABLET PO SCH ×2 (10:02→20:22)
[2018-12-30] MEDS: LISINOPRIL 5 MG TABLET PO SCH (10:02)
[2018-12-30] MEDS: THIAMINE 100MG TABLET PO SCH ×2 (10:03→20:22)
[2018-12-30] MEDS: FOLIC ACID 1 MG TABLET PO SCH (10:03)
[2018-12-30 15:45] VITALS: BP 126/82
[2018-12-30 19:10] VITALS: BP 120/60
[2018-12-31 01:19] VITALS: BP 116/70
[2018-12-31] MEDS: LEVOTHYROXINE 75 MCG TABLET PO SCH (05:59)
[2018-12-31] MEDS: PANTOPRAZOLE 20MG TABLET PO SCH ×2 (05:59→16:16)
[2018-12-31 06:53] VITALS: BP 145/92
[2018-12-31] MEDS: FOLIC ACID 1 MG TABLET PO SCH (08:56)
[2018-12-31] MEDS: THIAMINE 100MG TABLET PO SCH ×2 (08:56→20:44)
[2018-12-31] MEDS: APIXABAN 5 MG TABLET PO SCH ×2 (08:57→20:44)
[2018-12-31] MEDS: CARVEDILOL 25 MG TABLET PO SCH ×2 (08:57→20:44)
[2018-12-31] MEDS: LISINOPRIL 5 MG TABLET PO SCH (08:57)
[2018-12-31] MEDS: PAROXETINE HCL HOMEMEDPO SCH (08:57)
[2018-12-31 12:18] VITALS: BP 119/77
[2018-12-31 18:38] VITALS: BP 131/80
[2019-01-01 01:14] VITALS: BP 126/74
[2019-01-01] MEDS: PANTOPRAZOLE 20MG TABLET PO SCH ×2 (05:30→16:08)
[2019-01-01] MEDS: LEVOTHYROXINE 75 MCG TABLET PO SCH (05:30)
[2019-01-01 07:05] VITALS: BP 138/88
[2019-01-01] MEDS: PAROXETINE HCL HOMEMEDPO SCH (08:51)
[2019-01-01] MEDS: FOLIC ACID 1 MG TABLET PO SCH (08:51)
[2019-01-01] MEDS: CARVEDILOL 25 MG TABLET PO SCH (08:51)
[2019-01-01] MEDS: THIAMINE 100MG TABLET PO SCH (08:51)
[2019-01-01] MEDS: LISINOPRIL 5 MG TABLET PO SCH (08:51)
[2019-01-01] MEDS: APIXABAN 5 MG TABLET PO SCH (08:51)
[2019-01-01] MEDS ORDERED: MULTIVITAMIN 1 TABLET PO SCH (09:00)
[2019-01-01 12:41] VITALS: BP 116/73
[2019-01-01] MEDS ORDERED: FOLI-17 PO (16:25)
[2019-01-01] MEDS ORDERED: CARV25TA12 PO (16:25)
[2019-01-01] MEDS ORDERED: THIA100T67 PO (16:25)
[2019-01-01] MEDS ORDERED: LISI5TAB7 PO (16:25)
[2019-01-01] MEDS ORDERED: MULT1TAB60 PO (16:25)
[2019-01-01] MEDS ORDERED: APIX5TAB PO (16:25)
== END 2019-01-01 17:22 | disposition home health service (06) | DRG 641 ==
LOC: ED 16:48 → EDIP 17:38 → 5SO 17:40 → 3NE 12-28 18:06
PROVIDERS: ADMIT Internal Medicine; ATTEND Internal Medicine
DX: E86.0 Dehydration (principal); N39.0 Urinary tract infection, site not specified; F10.239 Alcohol dependence with withdrawal, unspecified; E87.2 Acidosis; I48.0 Paroxysmal atrial fibrillation; E87.0 Hyperosmolality and hypernatremia; I10 Essential (primary) hypertension; E83.51 Hypocalcemia; F32.9 Major depressive disorder, single episode, unspecified; E83.39 Other disorders of phosphorus metabolism; E66.3 Overweight; D69.59 Other secondary thrombocytopenia; B96.20 Unspecified Escherichia coli [E. coli] as the cause of diseases classified elsewhere; D53.9 Nutritional anemia, unspecified; D75.89 Other specified diseases of blood and blood-forming organs; R73.9 Hyperglycemia, unspecified; F41.9 Anxiety disorder, unspecified; Z79.82 Long term (current) use of aspirin; Z68.28 Body mass index [BMI] 28.0-28.9, adult; Y90.5 Blood alcohol level of 100-119 mg/100 ml
CPT/HCPCS: 36415; 71045; 80053; 80307; 81001; 82330; 83605; 83735; 83880; 84100; 84443; 84484; 85025; 85610; 85730; 87040; 87077; 87086; 87186; 87324; 89055; 93005; 93306; 96365; 96366; 96375; 96376; G0378; J0696; J1650; J2405; J3411; J0610; J2060; J3475; J7030

== ENCOUNTER 2019-02-01 11:46 | Inpatient (IN) | payer MEDICARE ==
[~2019-02-01] VITALS: Ht 165.1 cm; Wt 83.5 kg
[2019-02-08 07:00] VITALS: BP 150/83
== END 2019-02-08 17:26 | disposition home health service (06) | DRG 897 ==
LOC: ED 12:26 → EDIP 16:24 → 4WST 19:55 → DCLOUNGE 02-08 17:18
PROVIDERS: ADMIT Internal Medicine; ATTEND Internal Medicine
DX: F10.239 Alcohol dependence with withdrawal, unspecified (principal); D68.59 Other primary thrombophilia; F33.1 Major depressive disorder, recurrent, moderate; D53.9 Nutritional anemia, unspecified; D69.6 Thrombocytopenia, unspecified; E03.9 Hypothyroidism, unspecified; F41.1 Generalized anxiety disorder; G47.00 Insomnia, unspecified; I10 Essential (primary) hypertension; I48.0 Paroxysmal atrial fibrillation; Z90.49 Acquired absence of other specified parts of digestive tract
CPT/HCPCS: 36415; 70450; 76700; 80048; 80053; 80307; 82040; 82607; 83690; 83735; 84100; 85025; 93005; 99285; G0378; J2405; J3411; J3475; J7042; C9113; J2060; J3420; J7030

== ENCOUNTER 2020-02-06 18:24 | Inpatient (IN) | payer MEDICARE ==
[~2020-02-06] VITALS: Ht 167.6 cm; Wt 69.5 kg
[~2020-02-06 18:24] MED LIST changes: +ACET325T26 PO; +ACID1TAB7 PO; +AMOX1TAB12 PO; +APIX5TAB PO; +ASPI81TA45 PO; +BENZ100C PO; +CARV25TA12 PO; +DIGO125T85 PO; +DILT120T3 PO; +FOLI-17 PO; +HYDR-826 PO; -HYDR50TA13 PO; +HYDR50TA99 PO; +LEVO125T PO; +LEVO75TA PO; +LEVOTHYROXINE PO; +LISI5TAB7 PO; +MAGN400T50 PO; +MELA5TAB14 PO; +METO-95 PO; +METO-99 PO; +MULT-449 PO; +PANT40TA5 PO; +POTA20TA6 PO; +QUET25TA7 PO; +QUET50TA PO; +SERT50TA28 PO; +Sulfameth./Trimethoprim Ds PO; +THIA100T67 PO; +TRAM50TA2 PO
[2020-02-06] MEDS ORDERED: ONDANSETRON 2MG/ML, 2ML IVPush ONE (19:00)
[2020-02-06] MEDS ORDERED: SODIUM CHLORIDE 0.9% 1,000ML IVBOLUS ONE ×2 (19:00→20:30)
[2020-02-06] MEDS ORDERED: SODIUM CHLORIDE FLUSH 10ML SYR IVF ONE ×2 (19:00→20:30)
[2020-02-06 19:18] LABS: BASOPHILS # (AUTO) 0.02 x10^3/uL (0-0.1); BASOPHILS % (AUTO) 0 % (0-1); EOSINOPHILS # (AUTO) 0.02 x10^3/uL (0-0.4); EOSINOPHILS % (AUTO) 0 % (1-7); LYMPHOCYTES # (AUTO) 3.57 x10^3/uL (1-3.4); LYMPHOCYTES % (AUTO) 39 % (22-44); MD NO; MEAN CORPUSCULAR HEMOGLOBIN 32.5 pg (27.0-34.8); MEAN CORPUSCULAR HGB CONC 32.9 g/dL (32.4-35.8); MEAN CORPUSCULAR VOLUME 98.7 fL (80-100); MEAN PLATELET VOLUME 7.8 fL (7.4-10.4); MONOCYTES # (AUTO) 0.72 x10^3/uL (0.2-0.8); MONOCYTES % (AUTO) 8 % (2-9); NEUTROPHILS # (AUTO) 4.78 x10^3/uL (1.8-6.8); NEUTROPHILS % (AUTO) 52 % (42-75); PLATELET COUNT 284 x10^3/uL (130-400); RED BLOOD COUNT 4.65 x10^6/uL (3.82-5.3); RED CELL DISTRIBUTION WIDTH 14.1 % (9.6-15.2)
--- NOTE | 2020-02-06 19:23 | NUR ---
ART SPECIALIST: PT TO ROOM FROM LOBBY
[2020-02-06 19:30] LABS: ALANINE AMINOTRANSFERASE 19 U/L (12-78); ALBUMIN 3.5 g/dL (3.4-5.0); ANION GAP 12 mmol/L (5-15); CALCIUM 9.1 mg/dL (8.5-10.1); CHLORIDE 105 mmol/L (98-107); CREATININE 0.88 mg/dL (0.55-1.02)
[2020-02-06 19:32] LABS: ALKALINE PHOSPHATASE 97 U/L (45-117); BILIRUBIN,TOTAL 2.8 mg/dL (0.2-1.0); TOTAL PROTEIN 7.3 g/dL (6.4-8.2)
[2020-02-06] MEDS ORDERED: LORazepam 2 MG/ML, 1ML IVPush ONE (20:00)
[2020-02-06] MEDS ORDERED: APIXABAN 5 MG TABLET PO STA (20:13)
[2020-02-06] MEDS ORDERED: ONDANSETRON 2MG/ML, 2ML ONE (20:17)
[2020-02-06] MEDS ORDERED: APIXABAN 5 MG TABLET ONE (20:17)
[2020-02-06] MEDS ORDERED: METOPROLOL 1 MG/ML, 5ML ONE (20:17)
[2020-02-06] MEDS ORDERED: LORazepam 2 MG/ML, 1ML ONE ×2 (20:17→22:18)
[2020-02-06] MEDS: METOPROLOL 1 MG/ML, 5ML IVPush PRN ×3 (20:24→21:54)
[2020-02-06 20:57] LABS: TROPONIN I 0.018 ng/mL (0.000-0.045)
[2020-02-06] MEDS ORDERED: LORazepam 2 MG/ML, 1ML IVPush STA (22:09)
--- NOTE | 2020-02-06 22:40 | NUR ---
PT PROVIDED WITH MEAL TRAY PER REQUEST, AFTER ERP VERBAL OK. PROVIDED WITH WARM BLANKETS. VITALS STABLE, PT DENIES ANY NEEDS OR CONCERNS AT THIS TIME. CALL LIGHT IN REACH.
[2020-02-06] MEDS ORDERED: BISACODYL 10 MG SUPP PR PRN (23:00)
[2020-02-06] MEDS ORDERED: LABETALOL 5MG/ML, 20ML IVPush PRN (23:00)
[2020-02-06] MEDS ORDERED: POLYETHYLENE GLYCOL 17 GM PACKET PO PRN (23:00)
[2020-02-06] MEDS ORDERED: THIAMINE 200 MG, FOLIC ACID 1 MG, MVI ADULT 10 ML in SODIUM CHLORIDE 0.9% 1,000 ML IV SCH (23:00)
[2020-02-06] MEDS ORDERED: ONDANSETRON 2MG/ML, 2ML IVPush PRN (23:00)
[2020-02-06 23:58] LABS: TROPONIN I 0.018 ng/mL (0.000-0.045)
[2020-02-07] VITALS (7 sets, daily range): BP systolic 104–145; BP diastolic 69–97
[2020-02-07] MEDS ORDERED: METOPROLOL SUCCINATE 100 MG TAB.ER.24H ONE (00:38)
[2020-02-07] MEDS ORDERED: METOPROLOL SUCCINATE 100 MG TAB.ER.24H PO ONE (01:00)
[2020-02-07] MEDS: LORazepam 2 MG/ML, 1ML IVPush PRN ×7 (01:50→22:31)
[2020-02-07] MEDS ORDERED: METOPROLOL 1 MG/ML, 5ML IVPush STA (03:53)
[2020-02-07] MEDS ORDERED: METOPROLOL 1 MG/ML, 5ML ONE (04:00)
[2020-02-07] MEDS ORDERED: SODIUM CHLORIDE 0.9%, 500ML IVBOLUS PRN (04:30)
[2020-02-07] MEDS: LEVOTHYROXINE 125 MCG TABLET PO SCH (05:58)
[2020-02-07] MEDS: METOPROLOL SUCCINATE 100 MG TAB.ER.24H PO SCH ×2 (05:58→17:37)
[2020-02-07] MEDS: PANTOPRAZOLE 40MG TABLET PO SCH (05:58)
[2020-02-07] MEDS: CHLORDIAZEPOXIDE 25 MG CAPSULE PO SCH ×4 (05:59→22:31)
[2020-02-07] MEDS ORDERED: METOPROLOL SUCCINATE 100 MG TAB.ER.24H PO SCH (06:00)
[2020-02-07 06:17] LABS: BASOPHILS # (AUTO) 0.06 x10^3/uL (0-0.1); BASOPHILS % (AUTO) 1 % (0-1); EOSINOPHILS # (AUTO) 0.07 x10^3/uL (0-0.4); EOSINOPHILS % (AUTO) 1 % (1-7); LYMPHOCYTES # (AUTO) 2.95 x10^3/uL (1-3.4); LYMPHOCYTES % (AUTO) 39 % (22-44); MD NO; MEAN CORPUSCULAR HEMOGLOBIN 32.7 pg (27.0-34.8); MEAN CORPUSCULAR HGB CONC 32.9 g/dL (32.4-35.8); MEAN CORPUSCULAR VOLUME 99.6 fL (80-100); MEAN PLATELET VOLUME 8.1 fL (7.4-10.4); MONOCYTES # (AUTO) 0.55 x10^3/uL (0.2-0.8); MONOCYTES % (AUTO) 7 % (2-9); NEUTROPHILS # (AUTO) 3.92 x10^3/uL (1.8-6.8); NEUTROPHILS % (AUTO) 52 % (42-75); PLATELET COUNT 194 x10^3/uL (130-400); RED BLOOD COUNT 3.88 x10^6/uL (3.82-5.3); RED CELL DISTRIBUTION WIDTH 14.1 % (9.6-15.2)
[2020-02-07 06:20] LABS: CHLORIDE 109 mmol/L (98-107)
[2020-02-07 06:33] LABS: ANION GAP 7 mmol/L (5-15); CALCIUM 8.1 mg/dL (8.5-10.1); CREATININE 0.57 mg/dL (0.55-1.02); TROPONIN I 0.018 ng/mL (0.000-0.045)
[2020-02-07] MEDS: FOLIC ACID 1 MG TABLET PO SCH (08:18)
[2020-02-07] MEDS: POTASSIUM CHLORIDE 20 MEQ TAB.ER.PRT PO SCH (08:19)
[2020-02-07] MEDS: DILTIAZEM 125 MG in SODIUM CHLORIDE 0.9% 100 ML IV SCH ×2 (08:19→19:55)
[2020-02-07] MEDS: SENNA/DOCUSATE TABLET PO SCH (08:19)
[2020-02-07] MEDS: MULTIVITAMIN 1 TABLET PO SCH (08:19)
[2020-02-07] MEDS: APIXABAN 5 MG TABLET PO SCH ×2 (08:19→20:00)
[2020-02-07] MEDS ORDERED: THIAMINE 100MG TABLET PO SCH (09:00)
[2020-02-07 12:40] LABS: MICROSCOPIC AUTO
[2020-02-07] MEDS: CEFTRIAXONE PMX 1GM/50ML 50 ML IV SCH (15:23)
[2020-02-07] MEDS: MELATONIN 5 MG TABLET PO PRN (21:15)
[2020-02-08] MEDS: LORazepam 2 MG/ML, 1ML IVPush PRN ×5 (01:57→23:58)
[2020-02-08 02:06] VITALS: BP 102/69
[2020-02-08] MEDS: LEVOTHYROXINE 125 MCG TABLET PO SCH (05:12)
[2020-02-08] MEDS: PANTOPRAZOLE 40MG TABLET PO SCH (05:12)
[2020-02-08] MEDS: CHLORDIAZEPOXIDE 25 MG CAPSULE PO SCH ×4 (05:12→21:04)
[2020-02-08] MEDS: METOPROLOL SUCCINATE 100 MG TAB.ER.24H PO SCH (05:14)
[2020-02-08 06:14] LABS: ANION GAP 8 mmol/L (5-15); CALCIUM 9.2 mg/dL (8.5-10.1); CHLORIDE 107 mmol/L (98-107)
[2020-02-08 06:17] LABS: CREATININE 0.47 mg/dL (0.55-1.02)
[2020-02-08 06:21] LABS: BASOPHILS # (AUTO) 0.04 x10^3/uL (0-0.1); BASOPHILS % (AUTO) 1 % (0-1); EOSINOPHILS # (AUTO) 0.14 x10^3/uL (0-0.4); EOSINOPHILS % (AUTO) 2 % (1-7); LYMPHOCYTES # (AUTO) 2.81 x10^3/uL (1-3.4); LYMPHOCYTES % (AUTO) 37 % (22-44); MD NO; MEAN CORPUSCULAR HEMOGLOBIN 32.6 pg (27.0-34.8); MEAN CORPUSCULAR HGB CONC 32.8 g/dL (32.4-35.8); MEAN CORPUSCULAR VOLUME 99.5 fL (80-100); MEAN PLATELET VOLUME 8.5 fL (7.4-10.4); MONOCYTES % (AUTO) 7 % (2-9); NEUTROPHILS % (AUTO) 54 % (42-75); PLATELET COUNT 175 x10^3/uL (130-400); RED BLOOD COUNT 3.75 x10^6/uL (3.82-5.3); RED CELL DISTRIBUTION WIDTH 14.5 % (9.6-15.2)
[2020-02-08] MEDS: POTASSIUM CHLORIDE 20 MEQ TAB.ER.PRT PO SCH (08:53)
[2020-02-08] MEDS: THIAMINE 100MG TABLET PO SCH (08:53)
[2020-02-08] MEDS: APIXABAN 5 MG TABLET PO SCH ×2 (08:53→21:04)
[2020-02-08] MEDS: FOLIC ACID 1 MG TABLET PO SCH (08:54)
[2020-02-08] MEDS: SENNA/DOCUSATE TABLET PO SCH (08:54)
[2020-02-08] MEDS: MULTIVITAMIN 1 TABLET PO SCH (08:54)
[2020-02-08] MEDS: DILTIAZEM 125 MG in SODIUM CHLORIDE 0.9% 100 ML IV SCH (09:05)
[2020-02-08] MEDS ORDERED: DILTIAZEM 120 MG CAP.ER.24H PO SCH (10:00)
[2020-02-08 12:02] VITALS: BP 114/79
[2020-02-08] MEDS: CEFTRIAXONE PMX 1GM/50ML 50 ML IV SCH (14:22)
[2020-02-08] MEDS ORDERED: METOPROLOL SUCCINATE 100 MG TAB.ER.24H PO SCH (18:00)
[2020-02-08 18:01] VITALS: BP 143/94
[2020-02-08] MEDS: MELATONIN 5 MG TABLET PO PRN (23:57)
[2020-02-09 02:38] VITALS: BP 140/92
[2020-02-09] MEDS: CHLORDIAZEPOXIDE 25 MG CAPSULE PO SCH ×2 (05:48→11:00)
[2020-02-09] MEDS: PANTOPRAZOLE 40MG TABLET PO SCH (05:49)
[2020-02-09] MEDS: LEVOTHYROXINE 125 MCG TABLET PO SCH (05:49)
[2020-02-09] MEDS: METOPROLOL SUCCINATE 100 MG TAB.ER.24H PO SCH (05:49)
[2020-02-09 06:06] LABS: BASOPHILS # (AUTO) 0.02 x10^3/uL (0-0.1); BASOPHILS % (AUTO) 0 % (0-1); EOSINOPHILS # (AUTO) 0.14 x10^3/uL (0-0.4); EOSINOPHILS % (AUTO) 2 % (1-7); LYMPHOCYTES # (AUTO) 1.84 x10^3/uL (1-3.4); LYMPHOCYTES % (AUTO) 28 % (22-44); MD NO; MEAN CORPUSCULAR HEMOGLOBIN 32.5 pg (27.0-34.8); MEAN CORPUSCULAR HGB CONC 33.2 g/dL (32.4-35.8); MEAN CORPUSCULAR VOLUME 97.8 fL (80-100); MEAN PLATELET VOLUME 8.7 fL (7.4-10.4); MONOCYTES # (AUTO) 0.39 x10^3/uL (0.2-0.8); MONOCYTES % (AUTO) 6 % (2-9); NEUTROPHILS # (AUTO) 4.09 x10^3/uL (1.8-6.8); NEUTROPHILS % (AUTO) 63 % (42-75); PLATELET COUNT 154 x10^3/uL (130-400); RED BLOOD COUNT 4.11 x10^6/uL (3.82-5.3); RED CELL DISTRIBUTION WIDTH 13.9 % (9.6-15.2)
[2020-02-09 06:19] LABS: ANION GAP 8 mmol/L (5-15); CALCIUM 9.8 mg/dL (8.5-10.1); CHLORIDE 104 mmol/L (98-107); CREATININE 0.55 mg/dL (0.55-1.02)
[2020-02-09 08:37] VITALS: BP 137/91
[2020-02-09] MEDS: POTASSIUM CHLORIDE 20 MEQ TAB.ER.PRT PO SCH (09:01)
[2020-02-09] MEDS: APIXABAN 5 MG TABLET PO SCH (09:01)
[2020-02-09] MEDS: FOLIC ACID 1 MG TABLET PO SCH (09:01)
[2020-02-09] MEDS: MULTIVITAMIN 1 TABLET PO SCH (09:01)
[2020-02-09] MEDS: THIAMINE 100MG TABLET PO SCH (09:01)
[2020-02-09] MEDS ORDERED: RISPERIDONE 1 MG TAB.RAPDIS PO PRN (14:00)
[2020-02-09 14:08] VITALS: BP 143/96
[2020-02-09] MEDS: CEFTRIAXONE PMX 1GM/50ML 50 ML IV SCH (14:29)
[2020-02-09 22:21] VITALS: BP 129/85
[2020-02-10 00:41] VITALS: BP 128/87
[2020-02-10] MEDS: SENNA/DOCUSATE TABLET PO SCH ×2 (00:58→08:47)
[2020-02-10] MEDS: APIXABAN 5 MG TABLET PO SCH ×3 (00:58→22:33)
[2020-02-10] MEDS: METOPROLOL SUCCINATE 100 MG TAB.ER.24H PO SCH (05:49)
[2020-02-10] MEDS: PANTOPRAZOLE 40MG TABLET PO SCH (05:49)
[2020-02-10] MEDS: LEVOTHYROXINE 125 MCG TABLET PO SCH (05:49)
[2020-02-10 07:27] VITALS: BP 122/88
[2020-02-10] MEDS: THIAMINE 200 MG in SODIUM CHLORIDE 0.9% 50 ML IV SCH (08:47)
[2020-02-10] MEDS: FOLIC ACID 1 MG TABLET PO SCH (08:47)
[2020-02-10] MEDS: POTASSIUM CHLORIDE 20 MEQ TAB.ER.PRT PO SCH (08:47)
[2020-02-10] MEDS: MULTIVITAMIN 1 TABLET PO SCH (08:47)
[2020-02-10 12:36] VITALS: BP 120/84
[2020-02-10] MEDS: CEFTRIAXONE PMX 1GM/50ML 50 ML IV SCH (15:21)
[2020-02-10 19:28] VITALS: BP 103/72
[2020-02-10] MEDS: LORazepam 2 MG/ML, 1ML IVPush PRN (22:32)
[2020-02-11 01:50] VITALS: BP 127/88
[2020-02-11 02:15] VITALS: BP 115/81
[2020-02-11] MEDS: PANTOPRAZOLE 40MG TABLET PO SCH (05:27)
[2020-02-11] MEDS: LEVOTHYROXINE 125 MCG TABLET PO SCH (05:29)
[2020-02-11] MEDS: METOPROLOL SUCCINATE 100 MG TAB.ER.24H PO SCH (05:29)
[2020-02-11 07:15] VITALS: BP 125/87
[2020-02-11] MEDS: APIXABAN 5 MG TABLET PO SCH ×2 (08:42→21:46)
[2020-02-11] MEDS: POTASSIUM CHLORIDE 20 MEQ TAB.ER.PRT PO SCH (08:42)
[2020-02-11] MEDS: SENNA/DOCUSATE TABLET PO SCH (08:43)
[2020-02-11] MEDS: FOLIC ACID 1 MG TABLET PO SCH (08:43)
[2020-02-11] MEDS: MULTIVITAMIN 1 TABLET PO SCH (08:43)
[2020-02-11] MEDS: THIAMINE 200 MG in SODIUM CHLORIDE 0.9% 50 ML IV SCH (08:49)
[2020-02-11 12:49] VITALS: BP 110/77
[2020-02-11] MEDS: CEFTRIAXONE PMX 1GM/50ML 50 ML IV SCH (16:02)
[2020-02-11 18:53] VITALS: BP 114/79
[2020-02-11] MEDS: LORazepam 2 MG/ML, 1ML IVPush PRN (21:47)
[2020-02-12 01:09] VITALS: BP 122/82
[2020-02-12] MEDS: MELATONIN 5 MG TABLET PO PRN (01:16)
[2020-02-12] MEDS: METOPROLOL SUCCINATE 100 MG TAB.ER.24H PO SCH (06:27)
[2020-02-12] MEDS: PANTOPRAZOLE 40MG TABLET PO SCH (06:27)
[2020-02-12] MEDS: LEVOTHYROXINE 125 MCG TABLET PO SCH (06:27)
[2020-02-12 07:25] VITALS: BP 104/72
[2020-02-12] MEDS: THIAMINE 200 MG in SODIUM CHLORIDE 0.9% 50 ML IV SCH (10:01)
[2020-02-12] MEDS: SENNA/DOCUSATE TABLET PO SCH (10:01)
[2020-02-12] MEDS: FOLIC ACID 1 MG TABLET PO SCH (10:02)
[2020-02-12] MEDS: APIXABAN 5 MG TABLET PO SCH (10:02)
[2020-02-12] MEDS: MULTIVITAMIN 1 TABLET PO SCH (10:02)
[2020-02-12] MEDS: POTASSIUM CHLORIDE 20 MEQ TAB.ER.PRT PO SCH (10:02)
[2020-02-12 12:12] VITALS: BP 110/63
== END 2020-02-12 14:34 | disposition home or self-care (01) | DRG 896 ==
LOC: ED 22:27 → EDIP 22:56 → 5SO 23:12 → DCLOUNGE 02-12 14:13
PROVIDERS: ADMIT Family Medicine; ATTEND Internal Medicine
DX: F10.239 Alcohol dependence with withdrawal, unspecified (principal); G92 Toxic encephalopathy; N39.0 Urinary tract infection, site not specified; F29 Unspecified psychosis not due to a substance or known physiological condition; I48.0 Paroxysmal atrial fibrillation; G47.00 Insomnia, unspecified; I10 Essential (primary) hypertension; B96.1 Klebsiella pneumoniae [K. pneumoniae] as the cause of diseases classified elsewhere; F32.9 Major depressive disorder, single episode, unspecified; E03.9 Hypothyroidism, unspecified; F10.220 Alcohol dependence with intoxication, uncomplicated; F10.24 Alcohol dependence with alcohol-induced mood disorder
CPT/HCPCS: 36415; 71045; 80048; 80053; 80307; 81001; 83690; 83735; 84100; 84439; 84443; 84484; 85025; 87077; 87086; 87186; 93005; G0378; J0696; J2405; J3411; J2060; J7030

== ENCOUNTER 2020-04-16 09:36 | Emergency (ER) | payer MEDICARE ==
[~2020-04-16] VITALS: Ht 167.6 cm; Wt 70.0 kg
[~2020-04-16 09:36] MED LIST changes: -PANT40TA5 PO; +PANT40TA6 PO
--- NOTE | 2020-04-16 10:07 | NUR ---
RN INFORMED MD ABOUT PT'S CURRENT SITUATION. MD WOULD LIKE RN TO CALL SW TO COME SEE PATIENT.
[2020-04-16 10:56] LABS: BASOPHILS % (AUTO) 1 % (0-1); EOSINOPHILS % (AUTO) 1 % (1-7); LYMPHOCYTES % (AUTO) 38 % (22-44); MEAN CORPUSCULAR HEMOGLOBIN 31.8 pg (27.0-34.8); MEAN CORPUSCULAR HGB CONC 32.4 g/dL (32.4-35.8); MEAN PLATELET VOLUME 8.1 fL (7.4-10.4); MONOCYTES % (AUTO) 6 % (2-9); NEUTROPHILS % (AUTO) 54 % (42-75); RED BLOOD COUNT 4.33 x10^6/uL (3.82-5.3); RED CELL DISTRIBUTION WIDTH 16.4 % (9.6-15.2)
[2020-04-16 11:05] LABS: ALBUMIN 3.2 g/dL (3.4-5.0); ANION GAP 16 mmol/L (5-15); CALCIUM 8.7 mg/dL (8.5-10.1); CHLORIDE 107 mmol/L (98-107)
[2020-04-16 11:10] LABS: ALANINE AMINOTRANSFERASE 121 U/L (12-78); ALKALINE PHOSPHATASE 153 U/L (45-117); BILIRUBIN,TOTAL 1.8 mg/dL (0.2-1.0); CREATININE 0.54 mg/dL (0.55-1.02); TOTAL PROTEIN 6.7 g/dL (6.4-8.2)
--- NOTE | 2020-04-16 11:14 | NUR ---
RN HELPED PT TO THE B[facility] TO PROVIDE WITH A URINE SAMPLE. PT STATED DOESNT NEED TO VOID. OKAY BY VICKY TO PROVIDE PT WITH WATER. PT ALSO REQUESTING FOOD. OKAY BY VICKY TO ORDER PT A MEAL TRAY.
[2020-04-16 11:20] LABS: MD MORPH REVIEW ONLY; PLATELET COUNT 56 x10^3/uL (130-400)
[2020-04-16 11:23] LABS: <PLATELET ESTIMATE> DECREASED; <RBC MORPHOLOGY> NORMAL; LARGE PLATELETS 1+
--- NOTE | 2020-04-16 11:31 | NUR ---
PT ABLE TO PROVIDE RN WITH A URINE SAMPLE. RN WALKED URINE SAMPLE DOWN TO LAB. PT REQUESING "SOMETHING THAT YOU GIVE ALCOHOLICS WHO ARE DETOXING." RN TO INFORM ERMD. MEAL TRAY ORDERED.
--- NOTE | 2020-04-16 11:43 | NUR ---
LUNCH PROVIDED TO PT. RN INFORMED ERMD THAT PT IS REQUESTING MEDICATION FOR DETOX. NO NEW INTERVENTIONS AT THIS TIME.
[2020-04-16 11:54] LABS: AMPHETAMINE SCREEN, URINE Negative (Negative); BARBITURATE SCREEN, URINE Negative (Negative); BENZODIAZEPINE SCREEN, URINE Negative (Negative); CANNABINOID SCREEN, URINE Negative (Negative); COCAINE SCREEN, URINE Negative (Negative); METHADONE SCREEN, URINE Negative (Negative); OPIATE SCREEN, URINE Negative (Negative)
[2020-04-16 12:04] LABS: MICROSCOPIC INDICATED
[2020-04-16] MEDS ORDERED: CEFTRIAXONE PMX 1GM/50ML 50 ML IV ONE (13:00)
[2020-04-16] MEDS ORDERED: CEFTRIAXONE 1,000 MG IM ONE (13:00)
[2020-04-16] MEDS ORDERED: CEFTRIAXONE 1,000 MG ONE (13:10)
--- NOTE | 2020-04-16 13:25 | NUR ---
MEDICATION ADMINISTERED PER EMAR. PT STATES "FEELING BETTER." PT UP FOR RECHECK WITH ERMD.
--- NOTE | 2020-04-16 13:52 | NUR ---
RN CALLED SW TO COME SEE PT. SW STATED SHE WILL COME ASSESS PT IN "A LITTLE WHILE."
--- NOTE | 2020-04-16 14:17 | NUR ---
SW AND RN TALKED TO PT ABOUT A DISCHARGE PLAN. SW GAVE PT OPTIONS OF REHAB AND OR MENTAL HEALTH FACILITY. PT STATED "SHE JUST WANTS TO GO HOME AND GO TO SLEEP." PT STILL DENIES SI AT THIS TIME. OKAY BY PT TO TALK TO SON [place]. [place]'S NUMBER IS [phone]. WILMER CURRENTLY TALKING TO [place].
--- NOTE | 2020-04-16 14:45 | NUR ---
SILVIANO DIRECTOR MANUFACTURING ENGINEERING AT BEDSIDE EVALUATING PT.
--- NOTE | 2020-04-16 15:07 | NUR ---
Neelam Andrade ENTRY LEVEL ACCOUNT REPRESENTATIVE at bedside for evaluation.
--- NOTE | 2020-04-16 15:27 | NUR ---
REPORT TO SUDHIR HOGAN TO ASSUME PRIMARY CARE. PER REPORT FROM SILVIANO DEBONE SUPERVISOR PT IS WILLING TO GO VOLUNTARY TO [facility]. SILVIANO TO CALL SW TO UPDATE ON POC.
--- NOTE | 2020-04-16 15:34 | NUR ---
BEDSIDE REPORT RECEIVED FROM SUDHIR YANES. PATIENT RESTING IN [facility] WITH EYES CLOSED, CONNECTED TO AIRPORT SHUTTLE DRIVER, NO SIGNS OF ACUTE DISTRESS, CALL LIGHT WITHIN REACH.
[2020-04-16 15:35] VITALS: BP 126/82
--- NOTE | 2020-04-16 15:49 | NUR ---
AMBULATED PATIENT TO [facility] AND BACK TO [facility].
[2020-04-16] MEDS ORDERED: CHLORDIAZEPOXIDE 25 MG CAPSULE PO ONE (16:00)
[2020-04-16] MEDS ORDERED: CHLORDIAZEPOXIDE 25 MG CAPSULE ONE (16:38)
--- NOTE | 2020-04-16 16:50 | NUR ---
PATIENT TRANSFERRED VIA GURNEY TO [facility] BY RUG LAYER. ALL PATIENT BELONGINGS TAKEN UP WITH PATIENT.
== END 2020-04-16 16:51 ==
LOC: ED 12:56
DX: F32.9 Major depressive disorder, single episode, unspecified (principal); F10.229 Alcohol dependence with intoxication, unspecified; R10.9 Unspecified abdominal pain; I48.91 Unspecified atrial fibrillation; Z95.0 Presence of cardiac pacemaker; Y90.9 Presence of alcohol in blood, level not specified
CPT/HCPCS: 36415; 71045; 80053; 80307; 81001; 83690; 85025; 87077; 87086; 87186; 96372; 99285; J0696

== ENCOUNTER 2020-04-17 09:09 | Inpatient (IN) | payer MEDICARE ==
[~2020-04-17] VITALS: Ht 167.6 cm; Wt 72.0 kg
[2020-04-17 09:05] VITALS: BP 137/94
[2020-04-17] MEDS ORDERED: LORazepam 2 MG/ML, 1ML IV PRN ×5 (10:00)
[2020-04-17] MEDS ORDERED: ONDANSETRON 2MG/ML, 2ML IV PRN (10:00)
[2020-04-17] MEDS ORDERED: BISACODYL 10 MG SUPP PR PRN (10:00)
[2020-04-17] MEDS ORDERED: DOCUSATE 100 MG CAPSULE PO PRN ×3 (10:00→10:30)
[2020-04-17] MEDS ORDERED: ACETAMINOPHEN 325 MG TABLET PO PRN (10:00)
[2020-04-17] MEDS ORDERED: LABETALOL 5MG/ML, 20ML IV PRN (10:00)
[2020-04-17] MEDS: MULTIVITAMINS/MINERALS TABLET PO SCH (10:19)
[2020-04-17] MEDS: CHLORDIAZEPOXIDE 25 MG CAPSULE PO SCH ×2 (10:19→20:18)
[2020-04-17] MEDS ORDERED: ONDANSETRON ODT 4 MG PO PRN ×2 (10:30)
[2020-04-17] MEDS ORDERED: PANTOPRAZOLE 40MG TABLET PO SCH (10:30)
[2020-04-17] MEDS ORDERED: POLYETHYLENE GLYCOL 17 GM PACKET PO PRN ×2 (10:30)
[2020-04-17] MEDS ORDERED: HYDROcodone/APAP 5/325 TABLET PO PRN (10:30)
[2020-04-17] MEDS: PLEASE ENTER HEIGHT AND WEIGHT MC SCH ×2 (10:30→18:01)
[2020-04-17] MEDS ORDERED: TEMAZEPAM 15 MG CAPSULE PO PRN (10:30)
[2020-04-17] MEDS ORDERED: POTASSIUM CHLORIDE 20 MEQ, MAGNESIUM SULFATE 2 GM, THIAMINE 200 MG, MVI ADULT 10 ML, FO... IV SCH (10:30)
[2020-04-17] MEDS ORDERED: MULTIVITAMIN 1 TABLET PO SCH (11:00)
[2020-04-17] MEDS ORDERED: MELATONIN 5 MG TABLET PO PRN (11:00)
[2020-04-17] MEDS: APIXABAN 5 MG TABLET PO SCH ×2 (11:00→20:53)
[2020-04-17 11:04] LABS: BASOPHILS % (AUTO) 1 % (0-1); EOSINOPHILS % (AUTO) 1 % (1-7); LYMPHOCYTES % (AUTO) 36 % (22-44); MEAN CORPUSCULAR HEMOGLOBIN 32.3 pg (27.0-34.8); MEAN PLATELET VOLUME 8.9 fL (7.4-10.4); MONOCYTES % (AUTO) 8 % (2-9); NEUTROPHILS % (AUTO) 54 % (42-75); RED BLOOD COUNT 4.37 x10^6/uL (3.82-5.3)
[2020-04-17 11:07] LABS: INTERNATIONAL NORMALIZED RATIO 1.02 (0.93-1.1); PROTHROMBIN TIME 10.8 Seconds (9.6-11.5)
[2020-04-17 11:10] LABS: ALBUMIN 3.4 g/dL (3.4-5.0); ANION GAP 11 mmol/L (5-15); CALCIUM 9.4 mg/dL (8.5-10.1); CHLORIDE 104 mmol/L (98-107)
[2020-04-17 11:21] LABS: ALANINE AMINOTRANSFERASE 93 U/L (12-78); ALKALINE PHOSPHATASE 148 U/L (45-117); BILIRUBIN,TOTAL 3.6 mg/dL (0.2-1.0); CREATININE 0.61 mg/dL (0.55-1.02); FREE T4 (FREE THYROXINE) 0.86 ng/dL (0.76-1.46); TOTAL PROTEIN 6.8 g/dL (6.4-8.2)
[2020-04-17 11:36] LABS: PLATELET COUNT 34 x10^3/uL (130-400)
[2020-04-17 11:37] LABS: MD SCAN
[2020-04-17] MEDS: CEFTRIAXONE PMX 1GM/50ML 50 ML IV SCH (14:05)
[2020-04-17] MEDS: PANTOPRAZOLE 40MG TABLET PO SCH (14:06)
[2020-04-17] MEDS: LORazepam 2 MG/ML, 1ML IV PRN (14:12)
[2020-04-17 14:35] VITALS: BP 132/92
[2020-04-17] MEDS: POTASSIUM CHLORIDE 20 MEQ, MAGNESIUM SULFATE 2 GM, THIAMINE 200 MG, MVI ADULT 10 ML, FO... IV SCH (15:43)
[2020-04-17 17:59] VITALS: BP 125/88
[2020-04-17] MEDS: MAGNESIUM CHLORIDE 64 MG TABLET.DR PO SCH ×2 (18:00→20:19)
[2020-04-17] MEDS ORDERED: METOPROLOL SUCCINATE 100 MG TAB.ER.24H PO SCH (18:00)
[2020-04-17] MEDS: METOPROLOL SUCCINATE 50 MG TAB.ER.24H PO SCH (18:01)
[2020-04-17 18:49] VITALS: BP 147/106
[2020-04-18] MEDS: LORazepam 2 MG/ML, 1ML IV PRN ×2 (00:18→23:27)
[2020-04-18] MEDS: PLEASE ENTER HEIGHT AND WEIGHT MC SCH (02:30)
[2020-04-18 02:35] VITALS: BP 136/88
[2020-04-18] MEDS: CHLORDIAZEPOXIDE 25 MG CAPSULE PO SCH ×4 (02:37→20:20)
[2020-04-18] MEDS: POTASSIUM CHLORIDE 20 MEQ, MAGNESIUM SULFATE 2 GM, THIAMINE 200 MG, MVI ADULT 10 ML, FO... IV SCH ×3 (02:49→22:48)
[2020-04-18] MEDS: LEVOTHYROXINE 125 MCG TABLET PO SCH (05:36)
[2020-04-18 05:56] LABS: ALANINE AMINOTRANSFERASE 74 U/L (12-78); ANION GAP 7 mmol/L (5-15); CALCIUM 8.9 mg/dL (8.5-10.1); CHLORIDE 108 mmol/L (98-107); CHOLESTEROL, TOTAL 193 mg/dL (140-239); CREATININE 0.58 mg/dL (0.55-1.02)
[2020-04-18 05:59] LABS: ALKALINE PHOSPHATASE 161 U/L (45-117); CHOL/HDL RATIO 1.8; HDL CHOL % 56 % (28-40); HDL CHOLESTEROL (DIRECT) 108 mg/dL (40-60); LDL CHOLESTEROL,CALCULATED 73 mg/dL (54-169); LDL/HDL RATIO 0.7 (0.5-3.0); TOTAL PROTEIN 6.2 g/dL (6.4-8.2); TRIGLYCERIDES 58 mg/dL (50-200); VLDL CHOLESTEROL 12 mg/dL (0-25)
[2020-04-18 06:00] LABS: BASOPHILS % (AUTO) 1 % (0-1); EOSINOPHILS % (AUTO) 2 % (1-7); LYMPHOCYTES % (AUTO) 39 % (22-44); MEAN CORPUSCULAR HEMOGLOBIN 32.5 pg (27.0-34.8); MEAN CORPUSCULAR HGB CONC 32.8 g/dL (32.4-35.8); MONOCYTES % (AUTO) 8 % (2-9); NEUTROPHILS % (AUTO) 51 % (42-75); RED BLOOD COUNT 3.97 x10^6/uL (3.82-5.3); RED CELL DISTRIBUTION WIDTH 15.8 % (9.6-15.2)
[2020-04-18 06:26] LABS: PLATELET COUNT 33 x10^3/uL (130-400)
[2020-04-18 06:51] LABS: MD SCAN
[2020-04-18 08:30] VITALS: BP 126/84
[2020-04-18 08:51] VITALS: BP 135/94
[2020-04-18] MEDS: MAGNESIUM CHLORIDE 64 MG TABLET.DR PO SCH ×3 (09:00→20:19)
[2020-04-18] MEDS: PANTOPRAZOLE 40MG TABLET PO SCH (09:00)
[2020-04-18] MEDS: MULTIVITAMINS/MINERALS TABLET PO SCH (09:00)
[2020-04-18] MEDS: METOPROLOL SUCCINATE 50 MG TAB.ER.24H PO SCH ×2 (09:00→17:13)
[2020-04-18] MEDS: APIXABAN 5 MG TABLET PO SCH ×2 (09:00→20:20)
[2020-04-18] MEDS: CEFTRIAXONE PMX 1GM/50ML 50 ML IV SCH (12:45)
[2020-04-18 15:55] VITALS: BP 117/79
[2020-04-18 17:10] VITALS: BP 126/85
[2020-04-18] MEDS: HYDROcodone/APAP 5/325 TABLET PO PRN (17:15)
[2020-04-18 20:17] VITALS: BP 135/91
[2020-04-18] MEDS: TEMAZEPAM 15 MG CAPSULE PO PRN (21:46)
[2020-04-19 01:44] VITALS: BP 108/76
[2020-04-19] MEDS: CHLORDIAZEPOXIDE 25 MG CAPSULE PO SCH ×2 (02:13→09:32)
[2020-04-19] MEDS: HYDROcodone/APAP 5/325 TABLET PO PRN ×3 (03:45→18:02)
[2020-04-19] MEDS: METOPROLOL SUCCINATE 50 MG TAB.ER.24H PO SCH ×2 (05:04→18:02)
[2020-04-19] MEDS: LEVOTHYROXINE 125 MCG TABLET PO SCH (05:04)
[2020-04-19 05:47] LABS: BASOPHILS % (AUTO) 1 % (0-1); EOSINOPHILS % (AUTO) 4 % (1-7); LYMPHOCYTES % (AUTO) 40 % (22-44); MEAN CORPUSCULAR HEMOGLOBIN 32.7 pg (27.0-34.8); MEAN PLATELET VOLUME 9.7 fL (7.4-10.4); MONOCYTES % (AUTO) 10 % (2-9); NEUTROPHILS % (AUTO) 46 % (42-75); RED BLOOD COUNT 3.98 x10^6/uL (3.82-5.3); RED CELL DISTRIBUTION WIDTH 15.6 % (9.6-15.2)
[2020-04-19 05:56] LABS: ANION GAP 7 mmol/L (5-15); CALCIUM 8.8 mg/dL (8.5-10.1); CHLORIDE 109 mmol/L (98-107)
[2020-04-19 05:57] LABS: CREATININE 0.55 mg/dL (0.55-1.02)
[2020-04-19 06:01] LABS: PLATELET COUNT 44 x10^3/uL (130-400)
[2020-04-19 06:39] LABS: MD SCAN
[2020-04-19 06:43] VITALS: BP 138/91
[2020-04-19] MEDS: PANTOPRAZOLE 40MG TABLET PO SCH (07:31)
[2020-04-19] MEDS: LORazepam 2 MG/ML, 1ML IV PRN (07:32)
[2020-04-19] MEDS ORDERED: THIAMINE 100 MG in DEXTROSE 5% 50 ML IVPB SCH (09:00)
[2020-04-19] MEDS ORDERED: CHLORDIAZEPOXIDE 25 MG CAPSULE ONE (09:27)
[2020-04-19] MEDS: MAGNESIUM CHLORIDE 64 MG TABLET.DR PO SCH ×3 (09:32→21:56)
[2020-04-19] MEDS: APIXABAN 5 MG TABLET PO SCH ×2 (09:32→21:56)
[2020-04-19] MEDS: MULTIVITAMINS/MINERALS TABLET PO SCH (09:32)
[2020-04-19] MEDS: POTASSIUM CHLORIDE 20 MEQ, MAGNESIUM SULFATE 2 GM, THIAMINE 200 MG, MVI ADULT 10 ML, FO... IV SCH ×2 (11:00→21:56)
[2020-04-19 12:03] VITALS: BP 119/84
[2020-04-19] MEDS: CEFTRIAXONE PMX 1GM/50ML 50 ML IV SCH (13:00)
[2020-04-19 17:59] VITALS: BP 131/87
[2020-04-19 18:09] VITALS: BP 131/87
[2020-04-19] MEDS ORDERED: LORazepam 1MG TABLET PO PRN (20:30)
[2020-04-19 23:49] VITALS: BP 138/97
[2020-04-20] MEDS: HYDROcodone/APAP 5/325 TABLET PO PRN ×2 (00:10→22:24)
[2020-04-20 05:20] LABS: ANION GAP 6 mmol/L (5-15); CALCIUM 8.6 mg/dL (8.5-10.1); CHLORIDE 112 mmol/L (98-107)
[2020-04-20 05:23] LABS: CREATININE 0.48 mg/dL (0.55-1.02)
[2020-04-20 05:27] LABS: BASOPHILS % (AUTO) 1 % (0-1); EOSINOPHILS % (AUTO) 4 % (1-7); LYMPHOCYTES % (AUTO) 44 % (22-44); MEAN CORPUSCULAR HEMOGLOBIN 32.7 pg (27.0-34.8); MEAN CORPUSCULAR HGB CONC 32.8 g/dL (32.4-35.8); MEAN PLATELET VOLUME 8.6 fL (7.4-10.4); MONOCYTES % (AUTO) 13 % (2-9); NEUTROPHILS % (AUTO) 38 % (42-75); PLATELET COUNT 55 x10^3/uL (130-400); RED BLOOD COUNT 3.78 x10^6/uL (3.82-5.3); RED CELL DISTRIBUTION WIDTH 15.3 % (9.6-15.2)
[2020-04-20 06:17] LABS: MD SCAN
[2020-04-20 06:30] VITALS: BP 131/87
[2020-04-20] MEDS: LEVOTHYROXINE 125 MCG TABLET PO SCH (06:32)
[2020-04-20] MEDS: PANTOPRAZOLE 40MG TABLET PO SCH (06:32)
[2020-04-20] MEDS: METOPROLOL SUCCINATE 50 MG TAB.ER.24H PO SCH ×2 (06:32→18:04)
[2020-04-20 06:45] VITALS: BP 130/87
[2020-04-20] MEDS: APIXABAN 5 MG TABLET PO SCH ×2 (08:05→20:51)
[2020-04-20] MEDS: MAGNESIUM CHLORIDE 64 MG TABLET.DR PO SCH (08:05)
[2020-04-20] MEDS: MULTIVITAMINS/MINERALS TABLET PO SCH (08:05)
[2020-04-20] MEDS ORDERED: CHLORDIAZEPOXIDE 25 MG CAPSULE PO PRN (09:30)
[2020-04-20 10:47] VITALS: BP 133/87
[2020-04-20 12:10] VITALS: BP 126/86
[2020-04-20] MEDS: POTASSIUM CHLORIDE IV SCH (13:03)
[2020-04-20] MEDS: THIAMINE IV SCH (13:03)
[2020-04-20] MEDS: MVI ADULT IV SCH (13:03)
[2020-04-20] MEDS: MAGNESIUM SULFATE IV SCH (13:03)
[2020-04-20] MEDS: [UNRECOGNIZED DRUG - OTHER] IV SCH (13:03)
[2020-04-20] MEDS: CHLORDIAZEPOXIDE 25 MG CAPSULE PO SCH ×2 (13:11→20:52)
[2020-04-20] MEDS: CEFTRIAXONE PMX 1GM/50ML 50 ML IV SCH (13:12)
[2020-04-20 18:13] VITALS: BP 111/77
[2020-04-21] VITALS (7 sets, daily range): BP systolic 119–154; BP diastolic 80–107
[2020-04-21] MEDS: TEMAZEPAM 15 MG CAPSULE PO PRN (02:06)
[2020-04-21] MEDS: CHLORDIAZEPOXIDE 25 MG CAPSULE PO SCH ×5 (03:00→20:53)
[2020-04-21 05:11] LABS: BASOPHILS % (AUTO) 1 % (0-1); EOSINOPHILS % (AUTO) 3 % (1-7); LYMPHOCYTES % (AUTO) 41 % (22-44); MEAN CORPUSCULAR HEMOGLOBIN 32.6 pg (27.0-34.8); MEAN CORPUSCULAR HGB CONC 32.9 g/dL (32.4-35.8); MEAN PLATELET VOLUME 8.2 fL (7.4-10.4); MONOCYTES % (AUTO) 16 % (2-9); NEUTROPHILS % (AUTO) 40 % (42-75); PLATELET COUNT 77 x10^3/uL (130-400); RED BLOOD COUNT 3.74 x10^6/uL (3.82-5.3); RED CELL DISTRIBUTION WIDTH 15.3 % (9.6-15.2)
[2020-04-21 05:17] LABS: MD NO
[2020-04-21 05:20] LABS: CHLORIDE 112 mmol/L (98-107)
[2020-04-21] MEDS: LEVOTHYROXINE 125 MCG TABLET PO SCH (05:26)
[2020-04-21] MEDS: METOPROLOL SUCCINATE 50 MG TAB.ER.24H PO SCH ×2 (05:27→17:33)
[2020-04-21 05:31] LABS: ANION GAP 6 mmol/L (5-15); CALCIUM 8.6 mg/dL (8.5-10.1); CREATININE 0.59 mg/dL (0.55-1.02)
[2020-04-21] MEDS: PANTOPRAZOLE 40MG TABLET PO SCH (07:49)
[2020-04-21] MEDS: APIXABAN 5 MG TABLET PO SCH ×2 (07:50→20:53)
[2020-04-21] MEDS: HYDROcodone/APAP 5/325 TABLET PO PRN (07:50)
[2020-04-21] MEDS: MULTIVITAMINS/MINERALS TABLET PO SCH (07:50)
[2020-04-21] MEDS: THIAMINE IV SCH (10:55)
[2020-04-21] MEDS: POTASSIUM CHLORIDE IV SCH (10:55)
[2020-04-21] MEDS: MVI ADULT IV SCH (10:55)
[2020-04-21] MEDS: MAGNESIUM SULFATE IV SCH (10:55)
[2020-04-21] MEDS: [UNRECOGNIZED DRUG - OTHER] IV SCH (10:55)
[2020-04-21] MEDS: CEFTRIAXONE PMX 1GM/50ML 50 ML IV SCH (12:16)
[2020-04-22] MEDS: TEMAZEPAM 15 MG CAPSULE PO PRN ×2 (00:13→03:23)
[2020-04-22 05:56] LABS: BASOPHILS % (AUTO) 1 % (0-1); EOSINOPHILS % (AUTO) 3 % (1-7); LYMPHOCYTES % (AUTO) 36 % (22-44); MEAN CORPUSCULAR HEMOGLOBIN 32.5 pg (27.0-34.8); MEAN CORPUSCULAR HGB CONC 32.6 g/dL (32.4-35.8); MEAN PLATELET VOLUME 8.3 fL (7.4-10.4); MONOCYTES % (AUTO) 18 % (2-9); NEUTROPHILS % (AUTO) 43 % (42-75); PLATELET COUNT 89 x10^3/uL (130-400); RED BLOOD COUNT 3.97 x10^6/uL (3.82-5.3); RED CELL DISTRIBUTION WIDTH 15.4 % (9.6-15.2)
[2020-04-22] MEDS: METOPROLOL SUCCINATE 50 MG TAB.ER.24H PO SCH (06:06)
[2020-04-22] MEDS: CHLORDIAZEPOXIDE 25 MG CAPSULE PO SCH ×2 (06:06→11:27)
[2020-04-22] MEDS: LEVOTHYROXINE 125 MCG TABLET PO SCH (06:06)
[2020-04-22 06:16] LABS: MD NO
[2020-04-22 07:48] VITALS: BP 139/89
[2020-04-22] MEDS: PANTOPRAZOLE 40MG TABLET PO SCH (10:12)
[2020-04-22] MEDS: MULTIVITAMINS/MINERALS TABLET PO SCH (10:12)
[2020-04-22] MEDS: APIXABAN 5 MG TABLET PO SCH (10:12)
[2020-04-22] MEDS: THIAMINE IV SCH (11:27)
[2020-04-22] MEDS: MAGNESIUM SULFATE IV SCH (11:27)
[2020-04-22] MEDS: [UNRECOGNIZED DRUG - OTHER] IV SCH (11:27)
[2020-04-22] MEDS: POTASSIUM CHLORIDE IV SCH (11:27)
[2020-04-22] MEDS: MVI ADULT IV SCH (11:27)
[2020-04-22] MEDS ORDERED: ONDA4TAB13 PO (12:10)
[2020-04-22] MEDS ORDERED: CHLO25CA9 PO (12:10)
[2020-04-22] MEDS ORDERED: PANT40TA6 PO (12:10)
[2020-04-22] MEDS ORDERED: TEMA15CA6 PO (12:10)
[2020-04-22] MEDS ORDERED: MULT-484 PO (12:10)
[2020-04-22] MEDS ORDERED: METO-93 PO (12:13)
[2020-04-22 12:23] VITALS: BP 157/96
[2020-04-22] MEDS: CEFTRIAXONE PMX 1GM/50ML 50 ML IV SCH (14:28)
== END 2020-04-22 15:42 | DRG 309 ==
LOC: 5SO 09:09
PROVIDERS: ADMIT Internal Medicine; ATTEND Internal Medicine
PROC: 4B02XTZ Measurement of Cardiac Defibrillator, External Approach (ICD-10-PCS; principal; 2020-04-17)
DX: I48.0 Paroxysmal atrial fibrillation (principal); F10.239 Alcohol dependence with withdrawal, unspecified; N39.0 Urinary tract infection, site not specified; F33.2 Major depressive disorder, recurrent severe without psychotic features; I47.2 Ventricular tachycardia; K70.10 Alcoholic hepatitis without ascites; I35.8 Other nonrheumatic aortic valve disorders; D69.6 Thrombocytopenia, unspecified; I10 Essential (primary) hypertension; Z82.5 Family history of asthma and other chronic lower respiratory diseases; Z80.1 Family history of malignant neoplasm of trachea, bronchus and lung; Z82.0 Family history of epilepsy and other diseases of the nervous system; E03.9 Hypothyroidism, unspecified; F41.9 Anxiety disorder, unspecified; F51.04 Psychophysiologic insomnia; Z79.01 Long term (current) use of anticoagulants; Z79.899 Other long term (current) drug therapy; Z86.74 Personal history of sudden cardiac arrest; Z87.891 Personal history of nicotine dependence; Z95.810 Presence of automatic (implantable) cardiac defibrillator; E86.0 Dehydration
CPT/HCPCS: 36415; 71045; 80048; 80053; 80061; 82607; 83735; 84100; 84132; 84439; 84443; 85025; 85610; G0378; J0696; J3411; J3475; J3480; J7042; J2060; Q0177

== ENCOUNTER 2020-04-22 11:52 | Inpatient (IN) | payer MEDICARE ==
[~2020-04-22] VITALS: Ht 167.6 cm; Wt 68.0 kg
[2020-04-22] MEDS ORDERED: MULT-484 PO (12:10)
[2020-04-22] MEDS ORDERED: TEMA15CA6 PO (12:10)
[2020-04-22] MEDS ORDERED: CHLO25CA9 PO (12:10)
[2020-04-22] MEDS ORDERED: ONDA4TAB13 PO (12:10)
[2020-04-22] MEDS ORDERED: PANT40TA6 PO (12:10)
[2020-04-22] MEDS ORDERED: METO-93 PO (12:13)
[2020-04-22] MEDS ORDERED: POLYETHYLENE GLYCOL 17 GM PACKET PO PRN (12:30)
[2020-04-22] MEDS ORDERED: ONDANSETRON ODT 4 MG PO PRN (12:30)
[2020-04-22] MEDS ORDERED: BISACODYL 10 MG SUPP PR PRN (12:30)
[2020-04-22] MEDS ORDERED: PLEASE ENTER HEIGHT AND WEIGHT MC SCH (16:00)
[2020-04-22 16:21] VITALS: BP 134/85
[2020-04-22] MEDS: METOPROLOL SUCCINATE 50 MG TAB.ER.24H PO SCH (17:51)
[2020-04-22 19:20] VITALS: BP 121/84
[2020-04-22] MEDS: ACAMPROSATE 333 MG TABLET.DR PO SCH (20:23)
[2020-04-22] MEDS: APIXABAN 5 MG TABLET PO SCH (20:23)
[2020-04-22] MEDS: MELATONIN 5 MG TABLET PO PRN (20:23)
[2020-04-22] MEDS ORDERED: CHLORDIAZEPOXIDE 25 MG CAPSULE PO SCH (21:00)
[2020-04-23] MEDS: PANTOPRAZOLE 40MG TABLET PO SCH (06:09)
[2020-04-23] MEDS: METOPROLOL SUCCINATE 50 MG TAB.ER.24H PO SCH ×2 (06:09→16:43)
[2020-04-23] MEDS: LEVOTHYROXINE 125 MCG TABLET PO SCH (06:09)
[2020-04-23 06:21] VITALS: BP 133/77
[2020-04-23] MEDS: FOLIC ACID 1 MG TABLET PO SCH (09:59)
[2020-04-23] MEDS: ACAMPROSATE 333 MG TABLET.DR PO SCH ×3 (10:00→21:08)
[2020-04-23] MEDS: APIXABAN 5 MG TABLET PO SCH ×2 (10:00→21:08)
[2020-04-23] MEDS: THIAMINE 100MG TABLET PO SCH (10:00)
[2020-04-23] MEDS: MULTIVITAMINS/MINERALS TABLET PO SCH (10:00)
[2020-04-23 20:34] VITALS: BP 129/74
[2020-04-23] MEDS: MELATONIN 5 MG TABLET PO PRN (21:08)
[2020-04-24 06:05] VITALS: BP 130/83
[2020-04-24] MEDS: METOPROLOL SUCCINATE 50 MG TAB.ER.24H PO SCH ×2 (06:10→18:01)
[2020-04-24] MEDS: PANTOPRAZOLE 40MG TABLET PO SCH (06:10)
[2020-04-24] MEDS: LEVOTHYROXINE 125 MCG TABLET PO SCH (06:13)
[2020-04-24 07:38] VITALS: BP 99/58
[2020-04-24] MEDS: MULTIVITAMINS/MINERALS TABLET PO SCH (10:18)
[2020-04-24] MEDS: ACAMPROSATE 333 MG TABLET.DR PO SCH ×3 (10:18→20:23)
[2020-04-24] MEDS: APIXABAN 5 MG TABLET PO SCH ×2 (10:18→20:23)
[2020-04-24] MEDS: FOLIC ACID 1 MG TABLET PO SCH (10:18)
[2020-04-24] MEDS: THIAMINE 100MG TABLET PO SCH (10:18)
[2020-04-24] MEDS: VENLAFAXINE XR 37.5MG CAP.ER.24H PO SCH (13:12)
[2020-04-24 19:03] VITALS: BP 99/65
[2020-04-24] MEDS: LORazepam 1MG TABLET PO PRN (20:23)
[2020-04-24] MEDS: MELATONIN 5 MG TABLET PO PRN (20:23)
[2020-04-25 01:38] VITALS: BP 134/90
[2020-04-25 06:15] VITALS: BP 133/89
[2020-04-25] MEDS: METOPROLOL SUCCINATE 50 MG TAB.ER.24H PO SCH ×2 (06:17→18:00)
[2020-04-25] MEDS: LEVOTHYROXINE 125 MCG TABLET PO SCH (06:17)
[2020-04-25] MEDS: PANTOPRAZOLE 40MG TABLET PO SCH (06:17)
[2020-04-25 07:29] VITALS: BP 135/88
[2020-04-25] MEDS: VENLAFAXINE XR 37.5MG CAP.ER.24H PO SCH (08:56)
[2020-04-25] MEDS: FOLIC ACID 1 MG TABLET PO SCH (08:56)
[2020-04-25] MEDS: APIXABAN 5 MG TABLET PO SCH ×2 (08:56→20:31)
[2020-04-25] MEDS: ACAMPROSATE 333 MG TABLET.DR PO SCH ×3 (08:56→20:32)
[2020-04-25] MEDS: THIAMINE 100MG TABLET PO SCH (08:56)
[2020-04-25] MEDS: MULTIVITAMINS/MINERALS TABLET PO SCH (08:56)
[2020-04-25 13:08] VITALS: BP 116/76
[2020-04-25 20:00] VITALS: BP 139/92
[2020-04-25] MEDS ORDERED: FUROSEMIDE 40 MG TABLET PO ONE (20:28)
[2020-04-25] MEDS: MELATONIN 5 MG TABLET PO PRN (20:32)
[2020-04-25 21:13] LABS: BASOPHILS % (AUTO) 1 % (0-1); EOSINOPHILS % (AUTO) 2 % (1-7); LYMPHOCYTES % (AUTO) 40 % (22-44); MEAN CORPUSCULAR HEMOGLOBIN 32.6 pg (27.0-34.8); MEAN CORPUSCULAR HGB CONC 33.1 g/dL (32.4-35.8); MEAN PLATELET VOLUME 7.7 fL (7.4-10.4); MONOCYTES % (AUTO) 20 % (2-9); NEUTROPHILS % (AUTO) 37 % (42-75); PLATELET COUNT 220 x10^3/uL (130-400); RED BLOOD COUNT 3.64 x10^6/uL (3.82-5.3); RED CELL DISTRIBUTION WIDTH 15.1 % (9.6-15.2)
[2020-04-25 21:19] LABS: MD NO
[2020-04-25 23:55] VITALS: BP 106/73
[2020-04-26 04:37] VITALS: BP 120/84
[2020-04-26] MEDS: PANTOPRAZOLE 40MG TABLET PO SCH (05:35)
[2020-04-26] MEDS: LEVOTHYROXINE 125 MCG TABLET PO SCH (05:36)
[2020-04-26 06:38] LABS: ANION GAP 8 mmol/L (5-15); CALCIUM 9.2 mg/dL (8.5-10.1); CHLORIDE 105 mmol/L (98-107); CREATININE 0.65 mg/dL (0.55-1.02)
[2020-04-26 07:12] VITALS: BP 129/87
[2020-04-26] MEDS: METOPROLOL SUCCINATE 50 MG TAB.ER.24H PO SCH (07:15)
[2020-04-26] MEDS: THIAMINE 100MG TABLET PO SCH (08:59)
[2020-04-26] MEDS ORDERED: FUROSEMIDE 20 MG TABLET PO SCH (09:00)
[2020-04-26] MEDS: VENLAFAXINE XR 37.5MG CAP.ER.24H PO SCH (09:00)
[2020-04-26] MEDS: FOLIC ACID 1 MG TABLET PO SCH (09:00)
[2020-04-26] MEDS: MULTIVITAMINS/MINERALS TABLET PO SCH (09:00)
[2020-04-26] MEDS: APIXABAN 5 MG TABLET PO SCH ×2 (09:00→20:45)
[2020-04-26] MEDS: ACAMPROSATE 333 MG TABLET.DR PO SCH ×3 (09:01→20:45)
[2020-04-26] MEDS: POTASSIUM CHLORIDE 20 MEQ TAB.ER.PRT PO SCH (09:08)
[2020-04-26 09:21] LABS: MEAN CORPUSCULAR HEMOGLOBIN 32.5 pg (27.0-34.8); MEAN PLATELET VOLUME 7.5 fL (7.4-10.4); PLATELET COUNT 252 x10^3/uL (130-400); RED BLOOD COUNT 3.99 x10^6/uL (3.82-5.3); RED CELL DISTRIBUTION WIDTH 15.3 % (9.6-15.2)
[2020-04-26 09:34] LABS: TROPONIN I < 0.015 ng/mL (0.000-0.045)
[2020-04-26 10:11] LABS: MD YES
[2020-04-26 10:14] LABS: <PLATELET ESTIMATE> ADEQUATE; <PLT MORPHOLOGY> NORMAL PLT MORPH; <RBC MORPHOLOGY> NORMAL; LYMPHS% (MANUAL) 35 % (22-44); MONOS#(MANUAL) 0.76 x10^3/uL (0.3-2.7); MONOS% (MANUAL) 19 % (2-9); SEG#(MANUAL) 1.84 x10^3/uL (1.8-6.8); SEGS% (MANUAL) 46 % (42-75)
[2020-04-26 12:59] LABS: TROPONIN I < 0.015 ng/mL (0.000-0.045)
[2020-04-26 14:30] VITALS: BP 142/89
[2020-04-26 19:45] VITALS: BP 123/79
[2020-04-27 03:00] VITALS: BP 148/82
[2020-04-27 05:36] VITALS: BP 132/86
[2020-04-27] MEDS: METOPROLOL SUCCINATE 100 MG TAB.ER.24H PO SCH (05:38)
[2020-04-27] MEDS: LEVOTHYROXINE 125 MCG TABLET PO SCH (05:39)
[2020-04-27] MEDS: PANTOPRAZOLE 40MG TABLET PO SCH (05:39)
[2020-04-27 07:00] VITALS: BP 125/88
[2020-04-27] MEDS: POTASSIUM CHLORIDE 20 MEQ TAB.ER.PRT PO SCH (08:56)
[2020-04-27] MEDS: VENLAFAXINE XR 37.5MG CAP.ER.24H PO SCH (08:56)
[2020-04-27] MEDS: ACAMPROSATE 333 MG TABLET.DR PO SCH ×3 (08:56→20:53)
[2020-04-27] MEDS: THIAMINE 100MG TABLET PO SCH (08:56)
[2020-04-27] MEDS: MULTIVITAMINS/MINERALS TABLET PO SCH (08:57)
[2020-04-27] MEDS: FOLIC ACID 1 MG TABLET PO SCH (08:57)
[2020-04-27] MEDS: APIXABAN 5 MG TABLET PO SCH ×2 (08:57→20:53)
[2020-04-27] MEDS ORDERED: VENL37.52 PO (14:56)
[2020-04-27] MEDS ORDERED: ACAM333T7 PO (14:56)
[2020-04-27 16:38] VITALS: BP 126/89
[2020-04-27 20:14] VITALS: BP 117/77
[2020-04-28] MEDS: LORazepam 1MG TABLET PO PRN (02:50)
[2020-04-28] MEDS: PANTOPRAZOLE 40MG TABLET PO SCH (06:21)
[2020-04-28] MEDS: LEVOTHYROXINE 125 MCG TABLET PO SCH (06:21)
[2020-04-28] MEDS: METOPROLOL SUCCINATE 100 MG TAB.ER.24H PO SCH (06:21)
[2020-04-28 07:33] VITALS: BP 144/99
[2020-04-28] MEDS: MULTIVITAMINS/MINERALS TABLET PO SCH (08:12)
[2020-04-28] MEDS: THIAMINE 100MG TABLET PO SCH (08:12)
[2020-04-28] MEDS: FOLIC ACID 1 MG TABLET PO SCH (08:12)
[2020-04-28] MEDS: APIXABAN 5 MG TABLET PO SCH (08:12)
[2020-04-28] MEDS: ACAMPROSATE 333 MG TABLET.DR PO SCH ×2 (08:13→16:27)
[2020-04-28] MEDS: VENLAFAXINE XR 37.5MG CAP.ER.24H PO SCH (08:13)
[2020-04-28 15:00] VITALS: BP 129/89
[2020-04-28 19:43] VITALS: BP 135/87
== END 2020-04-28 20:10 | disposition home or self-care (01) | DRG 885 ==
LOC: 3E 15:46
PROVIDERS: ADMIT Psychiatry & Neurology Psychosomatic Medicine; ATTEND Psychiatry & Neurology Psychosomatic Medicine
DX: F33.2 Major depressive disorder, recurrent severe without psychotic features (principal); J96.01 Acute respiratory failure with hypoxia; J81.1 Chronic pulmonary edema; R62.7 Adult failure to thrive; E03.9 Hypothyroidism, unspecified; E87.6 Hypokalemia; F10.20 Alcohol dependence, uncomplicated; I10 Essential (primary) hypertension; I48.0 Paroxysmal atrial fibrillation; K21.9 Gastro-esophageal reflux disease without esophagitis; G47.00 Insomnia, unspecified; Z79.890 Hormone replacement therapy; Z86.74 Personal history of sudden cardiac arrest; Z91.81 History of falling; Z95.810 Presence of automatic (implantable) cardiac defibrillator
CPT/HCPCS: 36415; 71045; 80048; 82803; 83880; 84145; 84443; 84484; 85025; 85379; 93005; 93306; Q0162; 92523-GN; Q0177

== ENCOUNTER 2020-05-25 19:21 | Emergency (ER) | payer MEDICARE ==
[~2020-05-25] VITALS: Ht 167.6 cm; Wt 65.0 kg
[~2020-05-25 19:21] MED LIST changes: +ACAM333T7 PO; +CHLO25CA9 PO; +METO-93 PO; +MULT-484 PO; +ONDA4TAB13 PO; +TEMA15CA6 PO; +VENL37.52 PO
[2020-05-25] MEDS ORDERED: SODIUM CHLORIDE FLUSH 10ML SYR IVF ONE (19:30)
[2020-05-25] MEDS ORDERED: MAGNESIUM SULFATE 1 GM, THIAMINE 100 MG, FOLIC ACID 1 MG, MVI ADULT 10 ML in SODIUM CHL... IV ONE (19:30)
--- NOTE | 2020-05-25 19:32 | NUR ---
bib linsey with cc of etoh and si. pt is crying, eyes are red and puffy, pt upset about two daughters who have , "i cant seem to get over it". pt admits to drinking earlier today but is unsure how much. pt with negative self talk, "im so old and ugly" repeating this comment many times. pt states, "i just want to sleep and never wake up". pt denies plan and has no hisotry of si. per remsa son on his way to hospital.
[2020-05-25] MEDS ORDERED: MAGN400T36 PO (20:08)
[2020-05-25] MEDS ORDERED: POTA20TA89 PO (20:08)
--- NOTE | 2020-05-25 20:18 | NUR ---
ASSISTED IN PT CARE. IV ACCESS OBTAINED, LABS DRAWN AND SENT. NO FURTHER NEED EXPRESSED AT THIS TIME.
[2020-05-25 20:33] LABS: BASOPHILS % (AUTO) 1 % (0-1); EOSINOPHILS % (AUTO) 1 % (1-7); LYMPHOCYTES % (AUTO) 34 % (22-44); MEAN CORPUSCULAR HEMOGLOBIN 33.6 pg (27.0-34.8); MEAN CORPUSCULAR HGB CONC 33.4 g/dL (32.4-35.8); MEAN PLATELET VOLUME 8.8 fL (7.4-10.4); MONOCYTES % (AUTO) 8 % (2-9); NEUTROPHILS % (AUTO) 56 % (42-75); PLATELET COUNT 80 x10^3/uL (130-400); RED BLOOD COUNT 4.37 x10^6/uL (3.82-5.3); RED CELL DISTRIBUTION WIDTH 16.5 % (9.6-15.2)
[2020-05-25 20:38] LABS: MD MORPH REVIEW ONLY
[2020-05-25 20:40] LABS: ALANINE AMINOTRANSFERASE 69 U/L (12-78); ALBUMIN 3.4 g/dL (3.4-5.0); ANION GAP 9 mmol/L (5-15); CALCIUM 8.6 mg/dL (8.5-10.1); CHLORIDE 107 mmol/L (98-107); CREATININE 0.77 mg/dL (0.55-1.02)
[2020-05-25 20:42] LABS: ALKALINE PHOSPHATASE 126 U/L (45-117); TOTAL PROTEIN 7.1 g/dL (6.4-8.2)
[2020-05-25 20:45] LABS: SALICYLATE LEVEL < 1.7 mg/dL (2.8-20.0)
--- NOTE | 2020-05-25 20:52 | NUR ---
PT NOW SLEEPING, NO NEEDS AT THIS TIME. NO VISITORS AT THIS TIME
[2020-05-25 21:51] LABS: OVALOCYTES 1+
[2020-05-25 21:55] LABS: <PLATELET ESTIMATE> DECREASED; <PLT MORPHOLOGY> NORMAL PLT MORPH
--- NOTE | 2020-05-25 22:00 | NUR ---
PT ON BEDPAN, UNABLE TO PRODUCE URINE. PT REQUESTING FLUIDS BEFORE USING STRAIGHT CATH.
--- NOTE | 2020-05-25 22:30 | NUR ---
PT ON BEDPAN AGAIN TO VOID, UNSUCCESSFUL. PT EDUCATED ON USING IN AND OUT CATH TO GET URINE, PT REFUSING AT THIS TIME
--- NOTE | 2020-05-25 23:00 | NUR ---
PT UNABLE TO VOID, REFUSING STRAIGHT CATH
--- NOTE | 2020-05-25 23:40 | NUR ---
PT UNABLE TO VOID, AGREEABLE TO IN AND OUT CATH. URINE COLLECTED AND WALKED TO LAB
[2020-05-25 23:54] LABS: AMPHETAMINE SCREEN, URINE Negative (Negative); BARBITURATE SCREEN, URINE Negative (Negative); BENZODIAZEPINE SCREEN, URINE Positive (Negative); CANNABINOID SCREEN, URINE Negative (Negative); COCAINE SCREEN, URINE Negative (Negative); METHADONE SCREEN, URINE Negative (Negative); OPIATE SCREEN, URINE Negative (Negative)
[2020-05-26] MEDS ORDERED: LORazepam 2 MG/ML, 1ML ONE ×2 (00:41→10:01)
--- NOTE | 2020-05-26 00:51 | NUR ---
Assisted in pt care. Pt given PO fluids--tolerates well. Pt requesting Ativan. Tremors noted. Pt medicated per MAR. IV fluids infusing after IV repositioned. IV is now patent and infusing well. Lights dimmed and call light in reach.
[2020-05-26] MEDS ORDERED: APIXABAN 5 MG TABLET PO ONE (01:00)
[2020-05-26] MEDS ORDERED: LORazepam 2 MG/ML, 1ML IVPush PRN (01:00)
[2020-05-26] MEDS ORDERED: METOPROLOL SUCCINATE 50 MG TAB.ER.24H PO ONE (01:00)
[2020-05-26] MEDS ORDERED: APIXABAN 5 MG TABLET ONE (01:06)
--- NOTE | 2020-05-26 02:44 | NUR ---
PT PULLED IV OUT. REQUESTING ATIVAN. PT HANDS STEADY, NOT TACHYCARDIC ON THE MONITOR, NO S/S OF WITHDRAWAL. PT PROVIDED WITH ANOTHER SPRITE PER REQUEST. CALL LIGHT IN REACH.
[2020-05-26] MEDS ORDERED: ONDANSETRON ODT 4 MG ONE (03:57)
[2020-05-26] MEDS ORDERED: ONDANSETRON ODT 4 MG PO STA (04:13)
[2020-05-26] MEDS ORDERED: LORazepam 1MG TABLET PO PRN (06:00)
[2020-05-26] MEDS ORDERED: LORazepam 1MG TABLET ONE (06:05)
--- NOTE | 2020-05-26 06:10 | NUR ---
PT MOVED FROM ROOM 39 TO 03. SAFETY SUN DOWN, SITTER IN VIEW. NAD. WILL CONTINUE TO MONITOR.
--- NOTE | 2020-05-26 06:43 | NUR ---
PT BELONGINGS PLACED IN APPROPRIATE LOCKER (X1 BAG). PT DENIES ANY NEEDS AT THIS TIME. WILL CONTINUE TO MONITOR.
--- NOTE | 2020-05-26 06:56 | NUR ---
BEDSIDE REPORT GIVEN TO MAGAN PEGUERO
--- NOTE | 2020-05-26 08:30 | NUR ---
PT PROVIDED WITH MEAL TRAY, VSS, PT TO MONITORING EQUIP D/T CIWA, SI PRECAUTIONS OBSERVED, NAD NOTED
[2020-05-26 09:59] VITALS: BP 126/80
[2020-05-26] MEDS ORDERED: LORazepam 2 MG/ML, 1ML IM ONE (10:30)
--- NOTE | 2020-05-26 10:45 | NUR ---
ONE TIME IM ATIVAN ORDER OBTAINED BY ERMD, PT MEDICATED PER AUG. PT ASSISTED WITH BEDPAN, D/T NOT BEING ABLE TO BEAR WEIGHT.
--- NOTE | 2020-05-26 12:21 | NUR ---
REPORT GIVEN TO RECPIERO PEGUERO
== END 2020-05-26 13:13 ==
LOC: ED 21:57
DX: F33.9 Major depressive disorder, recurrent, unspecified (principal); F10.129 Alcohol abuse with intoxication, unspecified; R45.851 Suicidal ideations; R94.31 Abnormal electrocardiogram [ECG] [EKG]; I48.91 Unspecified atrial fibrillation; I10 Essential (primary) hypertension; E03.9 Hypothyroidism, unspecified; Z90.49 Acquired absence of other specified parts of digestive tract; Y90.0 Blood alcohol level of less than 20 mg/100 ml
CPT/HCPCS: 36415; 80053; 80299; 80307; 80320; 80329; 85025; 87426; 93005; 96365; 96372; 96375; 99285; J2060; J3411; J3475; J7030; Q0162; G0480